=== PATIENT | female | born 1930 | race Caucasian/White ===

== ENCOUNTER 2016-10-31 09:20 | Inpatient (IN) | payer OTHER ==
[2016-10-31] MEDS ORDERED: ONDANSETRON 4 MG/2 ML VIAL IVP ONE (09:47)
[2016-10-31] MEDS ORDERED: NS 500 ML IV ONE ×2 (09:48→15:33)
--- NOTE | 2016-10-31 10:26 | UCPHY ---
H & P Time Seen by Provider: 10/31/16 09:37 Patient Type: Established HPI/ROS: CHIEF COMPLAINT:Cough, nausea HPI: The patient is an 86 year old female with a complicated past medical history significant for PE, chronic UTI and knee pain, among others. Her daughter brought her here today with chief complaint of cough and shortness of breath that has been worsening over the last week. No fever or hemoptysis. She states also that the patient was started recently on Macrobid for chronic UTI, but took 1 pill of it and reported feeling too sick to her stomach. She has been having difficulty eating and drinking secondary to severe nausea and vomiting. No recent fall. REVIEW OF SYSTEMS: Aside from elements discussed in the HPI, a comprehensive 10-point review of systems was reviewed and is negative. PMH: Includes PE, chronic UTI, hypo kalemia. SOCIAL HISTORY: Lives with daughter. Retired. Denies drug abuse. FAMILY HISTORY: Reviewed, noncontributory PHYSICAL EXAM: General:Patient is alert, in no acute distress. ENT:Eyes are normal to inspection. ENT inspection normal. Neck: Normal inspection. Full range of motion. Respiratory:No respiratory distress. Breath sounds normal bilaterally. Cardiovascular: Tachycardic. Strong peripheral pulses. Normal cap refill. Abdomen:The abdomen is nontender to palpation. There are no peritoneal signs. There are normal bowel sounds. Back: Normal to inspection. No tenderness to palpation. Skin: Normal color. No rash. Warm and dry. Extremities: 2+ edema bilateral lower extremities. Chronic arthritic changes noted of hands. Neuro: Oriented x3. Normal motor function. Normal sensory function. Smoking Status: Never smoked Constitutional: Initial Vital Signs Temperature (C) 36.7 C 10/31/16 09:30 Heart Rate 91 10/31/16 09:30 Respiratory Rate 20 10/31/16 09:30 Blood Pressure 114/86 H 10/31/16 09:30 O2 Sat (%) 92 10/31/16 09:30 O2 Delivery Mode Room Air O2 (L/minute) 2 Allergies/Adverse Reactions: Penicillins Allergy (Intermediate, Verified 10/31/16 09:42) Other-Enter Comments Sulfa (Sulfonamide Antibiotics) Allergy (Intermediate, Verified 10/31/16 09:42) Other-Enter Comments Home Medications: Medication Instructions Recorded Ranitidine HCl [Zantac] 150 mg PO DAILY PRN 07/07/16 Nitrofurantoin Monohyd/M-Cryst 100 mg PO BID 10/31/16 [Nitrofurantoin [place]-Macrocrystal] Potassium Chloride [K-Tab ER] 10 meq PO DAILY 10/31/16 Warfarin Sodium [Warfarin Sodium] 2 mg PO MOWEFRSA@1600 10/31/16 Warfarin Sodium [Warfarin Sodium] 4 mg PO SUTUTH@1600 10/31/16 MDM/Departure - MDM Diagnostics: Imaging Impressions Chest X-Ray 10/31/16 09:38 Impression: 1. Multifocal airspace consolidation in the left base and periphery of bilateral mid lungs. Query atelectasis versus evolving bronchopneumonia. 2. Cardiomegaly. Trace effusion. No ok failure. Medications Given: Discontinued Medications Sodium Chloride (Ns) 500 mls @ 0 mls/hr IV ONCE ONE PRN Reason: As Directed Stop: 10/31/16 09:49 Last Admin: 10/31/16 10:00 Dose: 500 mls Levofloxacin/Dextrose (Levaquin 750 Mg (Premix)) 150 mls @ 100 mls/hr IV EDNOW ONE PRN Reason: Protocol Stop: 10/31/16 12:44 Last Admin: 10/31/16 11:20 Dose: 150 mls Sodium Chloride (Ns) 1,000 mls @ 0 mls/hr IV ONCE ONE PRN Reason: Wide Open Stop: 10/31/16 12:12 Last Admin: 10/31/16 12:15 Dose: 1,000 mls Ondansetron HCl (Zofran) 4 mg IVP EDNOW ONE Stop: 10/31/16 09:48 Last Admin: 10/31/16 10:05 Dose: 4 mg ED Course/Re-evaluation: I spoke to Dr. Joe Danielle at 11:15 a.m. he accepts patient for admission and transfer. I have started Levaquin on this patient. At approximately noon, the patient was noted to have decreased BP, with a MAP of approximately 71. She continues to mentate well and is quite chatty. Based on this finding, we sent a lactate and started additional fluids. I called hospitalist service back to upgrade bed. At approximately 1pm, her lactate has returned and is normal. I have asked staff to discontinue her IV fluids secondary to CHF. Another daughter has arrived and patient is now agreeable to transport by ambulance, which is indicated secondary to hypoxia, tachycardia and low BP. - Depart Disposition: [facility] Inpatient Acute Clinical Impression: Pneumonia, Hypoxia, UTI (urinary tract infection), CHF (congestive heart failure), Elevated troponin Condition: Serious - PQRS PQRS Measurement: 134: Depression screening and followup, PRIME MD-PHQ2 (12 years and older) Over the last 2 weeks, how often have you been bothered by any of the following problems? 1. Feeling down, depressed, or hopeless? 2. Little interest or pleasure in doing things? Patient answered no to both 1 and 2 130: Documentation of medications. Reviewed all patient medications, doses, route and frequency. 226: Do you smoke? No. 51: 18 years old and older with diagnosis of COPD, spirometry performance. Spirometry not performed; equipment not available. Patient has no history of COPD 52: 18 years old and older with COPD and symptoms of COPD or FEV1<60% predicted prescribed a B Agonist. Spirometry not performed; equipment not available.
[2016-10-31 10:31] LABS: % IMMATURE GRANULYOCYTES 0.5 % (0.0-1.1); ABSOLUTE IMMATURE GRANULOCYTES 0.05 10^3/uL (0.00-0.10); ADD DIFF? NO; ADD MORPH? NO; ADD SCAN? NO; ATYPICAL LYMPHOCYTE FLAG 0 (0-99); FRAGMENT RBC FLAG 0 (0-99); HEMATOCRIT 45.8 % (38.0-47.0); HEMOGLOBIN 15.1 g/dL (12.6-16.3); LEFT SHIFT FLG 0 (0-99); LIPEMIA HEMOLYSIS FLAG 80 (0-99); MEAN CELL HEMOGLOBIN 29.7 pg (27.9-34.1); MEAN PLATELET VOLUME 9.6 fL (8.7-11.7); PLATELET CLUMPS FLAG 0 (0-99); PLATELET COUNT 261 10^3/uL (150-400); RED BLOOD CELL COUNT 5.09 10^6/uL (4.18-5.33); RED CELL DISTRIBUTION WIDTH 14.8 % (11.5-15.2)
--- NOTE | 2016-10-31 10:41 | CPEKG ---
Heart Rate: 107 RR Interval: 561 P-R Interval: 172 QRSD Interval: 90 QT Interval: 360 QTC Interval: 481 P [place]: -10 QRS [place]: 64 T Wave [place]: 147 EKG Severity - ABNORMAL ECG - EKG Impression: SINUS TACHYCARDIA EKG Impression: ABERRANT COMPLEX, POSSIBLY SUPRAVENTRICULAR EKG Impression: NON SPECIFIC ST/T WAVE CHANGES NOTED Electronically Signed By: Valeriy Bedolla 04-Nov-2016 09:04:47
[2016-10-31 10:43] LABS: ANION GAP 10 mEq/L (8-16); CALCIUM 8.5 mg/dL (8.5-10.4); CARBON DIOXIDE 27 mEq/l (22-31); CHLORIDE 96 mEq/L (97-110); CREATININE 0.4 mg/dL (0.6-1.0); GLOMERULAR FILTRATION RATE > 60; GLUCOSE 109 mg/dL (70-100); POTASSIUM 3.2 mEq/L (3.5-5.2); SODIUM 133 mEq/L (134-144)
[2016-10-31 11:04] LABS: INR 2.12 (0.83-1.16); PROTIME(PATIENT) 23.5 SEC (12.0-15.0)
[2016-10-31 11:05] LABS: APTT 35.7 SEC (23.0-38.0)
[2016-10-31 11:22] LABS: COLOR YELLOW; LEUKOCYTE ESTERASE,URINE NEGATIVE (NEGATIVE); NITRITE,URINE NEGATIVE (NEGATIVE); PH,URINE 6.5 (5.0-7.5)
[2016-10-31 11:36] LABS: AMORPHOUS TRACE /hpf (NONE-1+); BACTERIA TRACE /hpf (NONE SEEN); MUCUS 2+ /lpf (NONE-1+); RENAL EPITHELIAL CELLS OCCASIONAL /hpf (NONE SEEN); WBC,URINE 25-50 /hpf (0-3); YEAST OCCASIONAL /hpf (NONE SEEN)
[2016-10-31 11:58] LABS: TROPONIN I 0.073 ng/mL (0-0.034)
[2016-10-31] MEDS ORDERED: NS 1,000 ML IV ONE (12:11)
--- NOTE | 2016-10-31 15:26 | PDGENHP ---
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 Over the past few days she reports having a decreased appetite. She has had a sore throat. She was seen by her primary care provider few days ago thought she may have urinary tract infection and started her on Macrobid. She is taking the Macrobid for 1 day. She has been having some nausea as well as some chest tightness but denies any chest pain. Denies any fever or chills. She denies cough. Denies any swelling of her legs. History Information - Allergies/Home Medication List Allergies/Adverse Reactions: Penicillins Allergy (Intermediate, Verified 10/31/16 09:42) Other-Enter Comments Sulfa (Sulfonamide Antibiotics) Allergy (Intermediate, Verified 10/31/16 09:42) Other-Enter Comments Home Medications: Ranitidine HCl [Zantac] 150 mg PO DAILY PRN 07/07/16 [Last Taken Unknown] Nitrofurantoin Monohyd/M-Cryst [Nitrofurantoin [place]-Macrocrystal] 100 mg PO BID 10/31/16 [Last Taken Unknown] Potassium Chloride [K-Tab ER] 10 meq PO DAILY 10/31/16 [Last Taken Unknown] Warfarin Sodium [Warfarin Sodium] 2 mg PO MOWEFRSA@1600 10/31/16 [Last Taken Unknown] Warfarin Sodium [Warfarin Sodium] 4 mg PO SUTUTH@1600 10/31/16 [Last Taken Unknown] I have personally reviewed and updated: family history, medical history, social history, surgical history - Past Medical History Additional medical history: Hypertension. Acute PE with RV strain 09/2015. h/o duodenal ulcer. osteoporosis with compression fractures. dementia. incarcerated hernia - Surgical History Additional surgical history: umbilical hernia repair (09/2015). appendectomy. cholecystectomy - Family History Positive for: non-pertinent - Social History Smoking Status: Never smoked Alcohol Use: None Drug Use: None Additional social history: Pt lives with her daughter in [place]. Review of Systems ROS: 10pt was reviewed & negative except for what was stated in HPI & below Physical Exam Temp Pulse Resp BP Pulse Ox 36.7 C 92 14 93/68 L 91 L 10/31/16 14:10 10/31/16 14:43 10/31/16 14:43 10/31/16 14:43 10/31/16 14:43 O2 (L/minute) 2 Constitutional: no apparent distress, appears nourished, not in pain, obese Eyes: PERRL, anicteric sclera, EOMI Ears, Nose, Mouth, Throat: moist mucous membranes, hearing normal, ears appear normal, no oral mucosal ulcers Cardiovascular: regular rate and rhythym, no murmur, rub, or gallop, irregularly irregular, JVD, No edema Respiratory: no respiratory distress, no rales or rhonchi, clear to auscultation , reduced air movement, inspiratory crackles Gastrointestinal: normoactive bowel sounds, soft, non-tender abdomen, no palpable masses, No guarding, No rebound Genitourinary: no bladder fullness, no bladder tenderness Skin: warm, normal color, no rashes or abrasions, no fluctuance, no induration, No mottled Musculoskeletal: full muscle strength, no muscle tenderness, normal joint ROM, no joint effusions Neurologic: AAOx3, CN II-XII Intact, No facial droop Psychiatric: interacting appropriately, not anxious, not encephalopathic, thought process linear Lymph, Heme, Immunologic: no cervical LAD, no supraclavicular LAD Lab Data & Imaging Review 10/31/16 10:20 10/31/16 10:20 WBC 9.88 10^3/uL (3.80-9.50) H 10/31/16 10:20 RBC 5.09 10^6/uL (4.18-5.33) 10/31/16 10:20 Hgb 15.1 g/dL (12.6-16.3) 10/31/16 10:20 Hct 45.8 % (38.0-47.0) 10/31/16 10:20 MCV 90.0 fL (81.5-99.8) 10/31/16 10:20 MCH 29.7 pg (27.9-34.1) 10/31/16 10:20 MCHC 33.0 g/dL (32.4-36.7) 10/31/16 10:20 RDW 14.8 % (11.5-15.2) 10/31/16 10:20 Plt Count 261 10^3/uL (150-400) 10/31/16 10:20 MPV 9.6 fL (8.7-11.7) 10/31/16 10:20 Neut % (Auto) 82.0 % (39.3-74.2) H 10/31/16 10:20 Lymph % (Auto) 9.1 % (15.0-45.0) L 10/31/16 10:20 [place] % (Auto) 7.4 % (4.5-13.0) 10/31/16 10:20 Eos % (Auto) 0.1 % (0.6-7.6) L 10/31/16 10:20 Baso % (Auto) 0.9 % (0.3-1.7) 10/31/16 10:20 Nucleat RBC Rel Count 0.0 % (0.0-0.2) 10/31/16 10:20 Absolute Neuts (auto) 8.10 10^3/uL (1.70-6.50) H 10/31/16 10:20 Absolute Lymphs (auto) 0.90 10^3/uL (1.00-3.00) L 10/31/16 10:20 Absolute Monos (auto) 0.73 10^3/uL (0.30-0.80) 10/31/16 10:20 Absolute Eos (auto) 0.01 10^3/uL (0.03-0.40) L 10/31/16 10:20 Absolute Basos (auto) 0.09 10^3/uL (0.02-0.10) 10/31/16 10:20 Absolute Nucleated RBC 0.00 10^3/uL (0-0.01) 10/31/16 10:20 Immature Gran % 0.5 % (0.0-1.1) 10/31/16 10:20 Immature Gran # 0.05 10^3/uL (0.00-0.10) 10/31/16 10:20 PT 23.5 SEC (12.0-15.0) H 10/31/16 10:46 INR 2.12 (0.83-1.16) H 10/31/16 10:46 APTT 35.7 SEC (23.0-38.0) 10/31/16 10:46 VBG Lactic Acid 0.9 mmol/L (0.7-2.1) 10/31/16 12:20 Sodium 133 mEq/L (134-144) L 10/31/16 10:20 Potassium 3.2 mEq/L (3.5-5.2) L 10/31/16 10:20 Chloride 96 mEq/L (97-110) L 10/31/16 10:20 Carbon Dioxide 27 mEq/l (22-31) 10/31/16 10:20 Anion Gap 10 mEq/L (8-16) 10/31/16 10:20 BUN 8 mg/dL (7-23) 10/31/16 10:20 Creatinine 0.4 mg/dL (0.6-1.0) L 10/31/16 10:20 Estimated GFR > 60 10/31/16 10:20 Glucose 109 mg/dL (70-100) H 10/31/16 10:20 Calcium 8.5 mg/dL (8.5-10.4) 10/31/16 10:20 Troponin I 0.073 ng/mL (0-0.034) H 10/31/16 11:13 NT-Pro-B Natriuret Pep 94087 pg/mL (0-450) H 10/31/16 11:13 Urine Color YELLOW 10/31/16 11:19 Urine Appearance CLEAR 10/31/16 11:19 Urine pH 6.5 (5.0-7.5) 10/31/16 11:19 Ur Specific [place] 1.025 (1.002-1.030) 10/31/16 11:19 Urine Protein 2+ (NEGATIVE) H 10/31/16 11:19 Urine Ketones TRACE (NEGATIVE) H 10/31/16 11:19 Urine Blood 1+ (NEGATIVE) H 10/31/16 11:19 Urine Nitrate NEGATIVE (NEGATIVE) 10/31/16 11:19 Urine Bilirubin POSITIVE (NEGATIVE) H 10/31/16 11:19 Urine Urobilinogen 0.2 EU (0.2-1.0) 10/31/16 11:19 Ur Leukocyte Esterase NEGATIVE (NEGATIVE) 10/31/16 11:19 Urine RBC 5-10 /hpf (0-3) H 10/31/16 11:19 Urine WBC 25-50 /hpf (0-3) H 10/31/16 11:19 Ur Epithelial Cells TRACE /lpf (NONE-1+) 10/31/16 11:19 Ur Renal Epithelial Cell OCCASIONAL /hpf (NONE SEEN) H 10/31/16 11:19 Amorphous Sediment TRACE /hpf (NONE-1+) 10/31/16 11:19 Urine Bacteria TRACE /hpf (NONE SEEN) H 10/31/16 11:19 Hyaline Casts 1-3 /lpf (0-1) H 10/31/16 11:19 Urine Mucus 2+ /lpf (NONE-1+) H 10/31/16 11:19 Urine Yeast OCCASIONAL /hpf (NONE SEEN) H 10/31/16 11:19 Ur Culture Indicated? INDICATED (NI) H 10/31/16 11:19 Urine Glucose NEGATIVE (NEGATIVE) 10/31/16 11:19 Visualized and Interpreted Chest x-ray results: Yes Chest X-Ray results: other ( He has significant cardiomegaly there is fluid in the median fissure spelled left pleural effusion with some mid lung infiltrates) Visualized and Interpreted EKG results: Yes EKG Interpretation: Positive for: LVH. Negative for: ST elevation, ST depression Assessment & Plan Assessment: this 86-year-old female with history of pulmonary embolism in June of 2016 presenting with: # Acute respiratory failure most likely due to acute diastolic congestive heart failure versus less likely pneumonia or pulmonary embolism given therapeutic INR - currently the patient is hypotensive making diuretics contraindicated. I offered repeat CT imaging of the chest to evaluate for pulmonary embolism which the patient did not want to proceed with which I think is reasonable. She has been given levofloxacin in the emergency department but will defer further antibiotics since I think her symptoms are most likely due to acute congestive heart failure in the setting of an elevated BNP and cardiomegaly. - Echocardiogram - fluid bolus 500 cc of normal saline - monitor on telemetry and obtain EKG to evaluate for atrial fibrillation or other tachyarrhythmias which may be the cause of her heart failure # history of pulmonary embolism with therapeutic INR - continue warfarin and monitor INR daily # indeterminate troponin most likely due to myocardial strain due to above - cycle troponins and consult Cardiology as indicated # mild hypokalemia and hyponatremia - replace potassium per protocol and check magnesium # general malaise - send influenza test # history of recurrent urinary tract infections with UA negative for nitrates and leukocyte esterase - will monitor off of antibiotics patient be admitted hospital under inpatient status. Will continue warfarin for DVT prophylaxis patient requests to be full code status
[2016-10-31] MEDS ORDERED: PROTOCOL POTASSIUM 1 DOSE MISC PRN (15:34)
--- NOTE | 2016-10-31 15:42 | CPEKG ---
Heart Rate: 94 RR Interval: 638 P-R Interval: 176 QRSD Interval: 90 QT Interval: 384 QTC Interval: 481 P [place]: -10 QRS [place]: 80 T Wave [place]: 158 EKG Severity - ABNORMAL ECG - EKG Impression: SINUS TACHYCARDIA EKG Impression: ABNORMAL T, CONSIDER ISCHEMIA, ANT-LAT LEADS Electronically Signed By: Valeriy Bedolla 31-Oct-2016 16:16:46
[2016-10-31] MEDS: WARFARIN SODIUM 2 MG TAB PO SCH (16:30)
[2016-10-31 16:35] LABS: MAGNESIUM 1.4 mg/dL (1.6-2.3); POTASSIUM 3.2 mEq/L (3.5-5.2)
[2016-10-31 16:48] LABS: TROPONIN I 0.061 ng/mL (0-0.034)
[2016-10-31] MEDS ORDERED: POTASSIUM CL 10 MEQ TAB PO ONE (16:48)
[2016-10-31] MEDS ORDERED: PROTOCOL MAGNESIUM 1 DOSE IV PRN (16:51)
[2016-10-31] MEDS ORDERED: MAGNESIUM SULF 2 GM/WATER 50 ML IV ONE (16:54)
--- NOTE | 2016-10-31 17:13 | ECHO ---
[id number] + + [id number] : : [place] [address] : : [phone] + + Adult Echocardiographic Report + -----+ :Name: KING HART Date: 10/31/2016 03:18 PM BP: 133/69 mmHg : : Hospital Admission Number: [id number] Location : 245: :: 1930 Gender: Female Height: 62 in : :Age: 86 yrs Race: WH Weight: 125 lb : :Reason For Study: CHF : : BSA: 1.6 meters2 : :History: CHF : + -----+ MMode/2D Measurements \T\ Calculations IVSd: 1.5 cm RVDd: 3.2 cm EDV(Teich): 91.0 mlAo root diam: LVPWd: 1.1 cm LVIDd: 4.5 cm 3.4 cm LVOT diam: 2.1 cmLVLd ap4: 8.3 cm SV(MOD-sp4): LVOT area: EDV(MOD-sp4): 57.0 ml 3.3 cm2 136.0 ml LVLs ap4: 7.9 cm ESV(MOD-sp4): 79.0 ml EF(MOD-sp4): 41.9 % Normal Measurement Values: + + :LVIDd (3.5-5.7cm) IVSd (0.6-1.1cm) LVPWd (0.6-1.1cm) Aortic Root (2.0-3.7cm)Left Atrium (1.5-4.0cm): :LV Vol(d) (76-115ml) LV Vol(s) (29-48ml) Ejec Fraction (50-65%)PV Ramesh (0.6- 1.2m/s) TV Ramesh (0.4-1.0m/s) : :MV E Ramesh (0.8-1.0m/s)MV A Ramesh (0.3-1.0m/s)LVOT Ramesh (0.7-1.2m/s) Asc Ao Ramesh ( 0.9-1.8m/s) : + + Doppler Measurements \T\ Calculations MV E max ramesh: Ao V2 max: LV V1 max: PA V2 max: 104.2 cm/sec 155.3 cm/sec 75.1 cm/sec 68.3 cm/sec MV A max ramesh: Ao max P.7 mmHgLV V1 max PG: PA max P.4 cm/sec ARY(V,D): 1.6 cm2 2.3 mmHg 1.9 mmHg MV E/A: 0.84 MV dec time: 0.15 sec TR max ramesh: 293.2 cm/sec TR max P.4 mmHg RAP systole: 10.0 mmHg RVSP(TR): 44.4 mmHg Left Ventricle The left ventricle is normal in size. There is moderate concentric left ventricular hypertrophy. Left ventricular systolic function is moderately reduced. Ejection Fraction = 35%. There is Doppler evidence for diastolic dysfunction. Elevated LV filling pressures. There is moderate global hypokinesis of the left ventricle. Right Ventricle The right ventricle is normal in size and function. Atria The left atrial size is normal. Right atrial size is normal. A dilated inferior vena cava suggests increased right atrial pressure. Mitral Valve The mitral valve leaflets appear thickened, but open well. There is no mitral valve stenosis. There is mild mitral regurgitation. Tricuspid Valve The tricuspid valve is normal in structure and function. There is no tricuspid stenosis. There is mild tricuspid regurgitation. Right ventricular systolic pressure is 45mmHg. There is Doppler evidence for mild pulmonary hypertension. Aortic Valve The aortic valve is trileaflet. Mild Aortic Valve Calcification. There is no aortic stenosis. There is no aortic insufficiency. Pulmonic Valve The pulmonic valve is normal in structure and function. Mild pulmonic valvular regurgitation. Great Vessels The aortic root is normal size. Pericardium/Pleural Small to Moderate pericardial effusion. There are no echocardiographic indications of cardiac tamponade. There is a large pleural effusion. Conclusion A two-dimensional transthoracic echocardiogram with M-mode and Doppler was performed. Since previous echocardiogram 06/2016 the estimated left ventricular ejection fraction has decreased from 45-50% to 35%. The pericardial and pleural effusions are new. The patient is tachycardic There is moderate concentric left ventricular hypertrophy. Left ventricular systolic function is moderately reduced. Ejection Fraction = 35%. There is Doppler evidence for diastolic dysfunction. Elevated LV filling pressures There is moderate global hypokinesis of the left ventricle. There is mild mitral regurgitation. There is mild tricuspid regurgitation. A dilated inferior vena cava suggests increased right atrial pressure. Right ventricular systolic pressure is 45mmHg. There is Doppler evidence for mild pulmonary hypertension. Mild pulmonic valvular regurgitation. Small to Moderate pericardial effusion. There is a large pleural effusion. Final Reading Physician: Dr Joann Holden electronically signed on 10/31/2016 05:11 PM Ordering Physician: Joe Danielle Performed By: Emiliana Nix
[2016-11-01 04:28] LABS: % IMMATURE GRANULYOCYTES 0.4 % (0.0-1.1); ABSOLUTE IMMATURE GRANULOCYTES 0.03 10^3/uL (0.00-0.10); ADD DIFF? NO; ADD MORPH? NO; ADD SCAN? NO; ATYPICAL LYMPHOCYTE FLAG 10 (0-99); FRAGMENT RBC FLAG 0 (0-99); HEMATOCRIT 43.9 % (38.0-47.0); HEMOGLOBIN 13.8 g/dL (12.6-16.3); LEFT SHIFT FLG 0 (0-99); LIPEMIA HEMOLYSIS FLAG 80 (0-99); MEAN CELL HEMOGLOBIN 29.4 pg (27.9-34.1); MEAN CELL HEMOGLOBIN CONCENTR. 31.4 g/dL (32.4-36.7); MEAN CELL VOLUME 93.6 fL (81.5-99.8); MEAN PLATELET VOLUME 10.1 fL (8.7-11.7); PLATELET CLUMPS FLAG 0 (0-99); PLATELET COUNT 231 10^3/uL (150-400); RED BLOOD CELL COUNT 4.69 10^6/uL (4.18-5.33)
[2016-11-01 04:34] LABS: ANION GAP 7 mEq/L (8-16); CALCIUM 8.6 mg/dL (8.5-10.4); CARBON DIOXIDE 23 mEq/l (22-31); CHLORIDE 103 mEq/L (97-110); CREATININE 0.5 mg/dL (0.6-1.0); GLOMERULAR FILTRATION RATE > 60; GLUCOSE 82 mg/dL (70-100); POTASSIUM 4.2 mEq/L (3.5-5.2); SODIUM 133 mEq/L (134-144)
[2016-11-01 04:46] LABS: INR 2.32 (0.83-1.16); PROTIME(PATIENT) 25.7 SEC (12.0-15.0)
--- NOTE | 2016-11-01 10:03 | HOSPPROG ---
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% and pleural effusions -start lasix today now that she is no longer hypotensive -cardiology consult pending -cont to monitor for arrhythmias -consider thoracentesis if resp status is not improving with diuresis # history of pulmonary embolism with therapeutic INR - continue warfarin and monitor INR daily # indeterminate troponin most likely due to myocardial strain due to above ( decreasing) # mild hypokalemia and hypomagnesemia - replace per protocol # general malaise - influenza test negative # history of recurrent urinary tract infections with UA negative for nitrates and leukocyte esterase - will monitor off of antibiotics patient requests to be full code status I do not feel like she is stable for DC. The patient is fairly adamant about going home today. If she would like to leave she should sign AMA prior to DC. Subjective: uncooperative and combative today. denies sob. dry cough overnight. tolerating diet. didn't sleep through the night. refusing PT Objective: Vital Signs Temp Pulse Resp BP Pulse Ox 36.4 C 94 20 134/88 H 89 L 11/01/16 07:45 11/01/16 07:45 11/01/16 07:45 11/01/16 07:45 11/01/16 07:45 Laboratory Results 11/01/16 03:22 11/01/16 03:22 10/31/16 11/01/16 11/02/16 05:59 05:59 05:59 Intake Total 1850 Output Total 800 Balance 1050 PT 25.7 SEC (12.0-15.0) H 11/01/16 03:22 INR 2.32 (0.83-1.16) H 11/01/16 03:22 - Physical Exam Constitutional: obese Cardiovascular: no murmur, rub, or gallop, irregularly irregular, edema Respiratory: no respiratory distress, inspiratory crackles (middle and lowe lobes) Neurologic: AAOx3 ICD10 Worksheet Patient Problems: Problems Problem Status Onset Nausea & vomiting Acute Hyponatremia Acute Urinary tract infection Acute Near syncope Acute Tachycardia Acute Pneumonia Acute Hypoxia Acute UTI (urinary tract infection) Acute CHF (congestive heart failure) Acute Elevated troponin Acute
[2016-11-01] MEDS ORDERED: FUROSEMIDE 20 MG/2 ML VIAL IVP ONE ×2 (10:12→15:02)
[2016-11-01] MEDS: LISINOPRIL 5 MG TAB PO SCH (10:47)
--- NOTE | 2016-11-01 15:32 | GCON ---
[f rep st] CONSULTATION CARDIOLOGY CONSULTATION DATE OF CONSULTATION: 11/01/2016 CHIEF COMPLAINT: Heart failure. HISTORY OF PRESENT ILLNESS: We were asked by Dr. Danielle to visit with the patient. The patient is a n 86-year-old female with a history of recurrent pulmonary embolism, anticoagulated with warfarin. She has cardiomyopathy/heart failure, hypertension, dementia. She was admitted through Urgent Care on October 31 with shortness of breath, cough, lower extremity e radha. Her history is difficult due to her dementia. History is also provided by the daughters. Th ey report that she "just did not feel well." The patient herself denies chest pain. The patient wa nts to go home. REVIEW OF SYSTEMS: Unable due to the patient's dementia. ALLERGIES: Penicillin and sulfa. PAST MEDICAL HISTORY: 1. Pulmonary embolism with recurrence, currently anticoagulated with warfarin. 2. Possible paroxysmal atrial fibrillation. 3. Cardiomyopathy/systolic heart failure. 4. Hypertension. 5. Osteoarthritis. 6. Peptic ulcer disease. 7. Dementia. MEDICATIONS: Warfarin, nitrofurantoin, Zantac, and potassium chloride. SOCIAL HISTORY: The patient lives with one of her daughters. She does not smoke cigarettes or drin k alcohol. FAMILY HISTORY: Not applicable to the current case. PHYSICAL EXAM: VITAL SIGNS: Blood pressure 126/63, heart rate 94, oxygen saturation 95% on 6 L oriana al cannula, respiratory rate is 28. She is afebrile. GENERAL: This is an ill-appearing older fema le who is slightly agitated HEENT: Sclerae are clear and free of jaundice. Mucous members are mois t. CARDIOVASCULAR: JVP is approximately 12-14 cm of water. Regular tachycardic rhythm without mur mur, rub, or gallop. LUNGS: Bibasilar rales. No wheezes or rhonchi. ABDOMEN: Soft, nontender, n ondistended. No obvious masses. EXTREMITIES: Warm and well perfused with 1+ pitting edema to the mid shins bilaterally. LABORATORY DATA: White count 7.1, hematocrit 44, and platelets are 231. INR 2.3. Sodium 133, pota ssium 4.2, chloride 103, bicarb 23, BUN 10, creatinine 0.5. Troponin peak has been 0.73 and has rosalba nded down. Her BNP is 10,300; this is up from 796 in June. Urinalysis shows 25-50 white blood cells, 5-10 red blood cells, 1+ blood, negative nitrate, negative leukocyte esterase. Flu swab was negative. Blood cultures are pending. EKG reviewed by me and compared to an outpatient EKG from June shows sinus rhythm versus ectopic rhythm. Premature atrial contraction. Lateral ST-T wave abnormalities concerning for ischemia ian t are new compared with June 2016. Chest x-ray reviewed by me: Multifocal airspace consolidation. Cardiomegaly. Echocardiogram reviewed by me: Moderate concentric LVH. Ejection fraction is moderately reduced at 35%. Elevated LV filling pressures. Mild mitral regurgitation. Mild tricuspid regurgitation. Es timated pulmonary pressures of 45. Small to moderate pericardial effusion without tamponade. Large pleural effusion. Compared to June 2016, the ejection fraction has dropped from 45% to 50% to now 35%. The pericardial and pleural effusions are new. ASSESSMENT AND PLAN: An 86-year-old female admitted with acute systolic heart failure and a decreme nt in her ejection fraction. The etiology of this is not completely clear; although with her ischem ic-appearing EKG, I would be concerned about coronary disease. I had a long discussion with the jonathan real's daughters, and they agree that their mother would not want invasive measures such as coronary angiography. She is currently not having chest pain. Her troponins have been only minimally eleva chet and not up-trending. 1. Acute systolic heart failure: Agree with IV Lasix. She would likely require oral Lasix upon di scharge. Would also start spironolactone given her low ejection fraction. She has been started on lisinopril. If she tolerates this, initiate Coreg tomorrow. 2. Intermittent tachycardia: On telemetry, it appears that she may have intermittent paroxysmal at rial fibrillation. Start Coreg if she tolerates lisinopril. She is anticoagulated with warfarin. It is possible that she has had PAF which triggered heart failure as an outpatient. 3. History of hypertension: Lisinopril, consider Coreg. Spironolactone. Lasix. Thank you for allowing us to participate in this patient's care. We will follow with you. /[id number]/MODL
[2016-11-01] MEDS: SPIRONOLACTONE 25 MG TAB PO SCH (16:06)
[2016-11-01] MEDS: WARFARIN SODIUM 2 MG TAB PO SCH (16:06)
[2016-11-01 19:15] LABS: POTASSIUM 3.8 mEq/L (3.5-5.2)
[2016-11-02] MEDS ORDERED: POTASSIUM CL 10 MEQ TAB PO ONE ×2 (07:53→09:56)
[2016-11-02] MEDS ORDERED: FUROSEMIDE 20 MG/2 ML VIAL IVP SCH (09:00)
[2016-11-02 09:12] LABS: % IMMATURE GRANULYOCYTES 0.3 % (0.0-1.1); ABSOLUTE IMMATURE GRANULOCYTES 0.02 10^3/uL (0.00-0.10); ADD DIFF? NO; ADD MORPH? NO; ADD SCAN? NO; ATYPICAL LYMPHOCYTE FLAG 0 (0-99); FRAGMENT RBC FLAG 0 (0-99); HEMATOCRIT 42.2 % (38.0-47.0); HEMOGLOBIN 13.4 g/dL (12.6-16.3); LEFT SHIFT FLG 0 (0-99); LIPEMIA HEMOLYSIS FLAG 80 (0-99); MEAN CELL HEMOGLOBIN 29.8 pg (27.9-34.1); MEAN CELL HEMOGLOBIN CONCENTR. 31.8 g/dL (32.4-36.7); MEAN CELL VOLUME 93.8 fL (81.5-99.8); PLATELET CLUMPS FLAG 0 (0-99); PLATELET COUNT 206 10^3/uL (150-400); RED CELL DISTRIBUTION WIDTH 14.6 % (11.5-15.2)
[2016-11-02] MEDS: LISINOPRIL 5 MG TAB PO SCH (09:13)
[2016-11-02] MEDS: SPIRONOLACTONE 25 MG TAB PO SCH (09:14)
[2016-11-02 09:41] LABS: INR 2.37 (0.83-1.16); PROTIME(PATIENT) 26.1 SEC (12.0-15.0)
[2016-11-02 09:49] LABS: MAGNESIUM 1.7 mg/dL (1.6-2.3); POTASSIUM 3.4 mEq/L (3.5-5.2)
[2016-11-02] MEDS ORDERED: MAGNESIUM SULF 1 GM/DEXTROSE 100 ML IV ONE (09:57)
--- NOTE | 2016-11-02 10:27 | SOAPPROG ---
SOAP Progress Note Assessment/Plan: Assessment: 1. Acute hypoxic respiratory failure. This is likely on the basis of her body habitus as well as the recent development of cardiomyopathy and congestive heart failure. She appears to be oxygenating well on supplemental oxygen. There is no indication of an acute infectious process. She does have a history of previous PE although is therapeutically anticoagulated. 2. Newly diagnosed cardiomyopathy. She has global hypokinesis with an ejection fraction of about 30-35%. The exact etiology is not entirely clear. Ischemia has not been excluded. Her electrocardiogram demonstrates abnormalities (T- wave inversions) which could either be related to strain or possibly ischemia. Previous conversations with she and the family have indicated that she does not want any aggressive form of management. 3. Hypertension. 4. Probable paroxysmal atrial fibrillation. She has not had sustained episodes that we are aware of a rapid ventricular response. She is on systemic anticoagulation at the present time. Plan: 1. I will transition her to p.o. Lasix at a dose of 40 mg daily with supplemental potassium. 2. I would like to start Coreg 3.125 mg twice daily. 3. Her other medications including systemic anticoagulation will be continued. 4. I anticipate that she will likely go home today. There is consideration that she may start hospice care. 5. If needed she can follow up with me in clinic. 11/02/16 10:27 Subjective: The patient was seen and examined. Her chart was reviewed. She was seen in consultation yesterday by Dr. Joann Holden. Today, the patient states that she is comfortable. She does not have complaints of dyspnea or chest discomfort. She has remained hemodynamically stable. Apparently, she and her daughter have decided to leave the hospital, returned home and proceed with hospice care. Objective: Vital Signs Temp Pulse Resp BP Pulse Ox 36.8 C 97 20 131/73 H 93 11/02/16 04:00 11/02/16 04:00 11/02/16 04:00 11/02/16 09:13 11/02/16 04:00 Laboratory Results 11/02/16 09:00 11/02/16 09:00 11/01/16 11/02/16 11/03/16 05:59 05:59 05:59 Intake Total 1850 1280 Output Total 800 1750 Balance 1050 -470 PT 26.1 SEC (12.0-15.0) H 11/02/16 09:00 INR 2.37 (0.83-1.16) H 11/02/16 09:00 Laboratory Tests 10/31/16 10/31/16 11/01/16 11:13 16:16 03:22 INR Troponin I 0.073 H 0.061 H 0.050 H NT-Pro-B Natriuret Pep 29749 H 11/02/16 09:00 INR 2.37 H Troponin I NT-Pro-B Natriuret Pep Physical Exam - Physical Exam General Appearance: WD/WN, alert, other (Short stature), No no apparent distress Neck: non-tender Respiratory: decreased breath sounds (Right base), rales (At the base) Cardiac/Chest: regular rate, rhythm, edema (Trace), No gallop, No JVD, No diastolic murmur, No systolic murmur, No friction rub Peripheral Pulses: 2+: carotid (R), carotid (L) ICD10 Worksheet Patient Problems: Problems Problem Status Onset Nausea & vomiting Acute Hyponatremia Acute Urinary tract infection Acute Near syncope Acute Tachycardia Acute Pneumonia Acute Hypoxia Acute UTI (urinary tract infection) Acute CHF (congestive heart failure) Acute Elevated troponin Acute
[2016-11-02] MEDS ORDERED: FUROSEMIDE 40 MG TAB PO SCH (10:30)
--- NOTE | 2016-11-02 11:23 | GDS ---
[f rep st] DISCHARGE SUMMARY DISCHARGE DIAGNOSES: 1. Acute hypoxemic respiratory failure. 2. Wutvm-eq-goyrvpv combined congestive heart failure with worsening ejection fraction of 35%. 3. History of pulmonary embolism with a therapeutic INR. 4. Hypomagnesemia. 5. Hypokalemia. 6. History of recurring urinary tract infections. CONSULTANTS: Dr. Joann Holden, [facility]. HOSPITAL COURSE AND STAY BY PROBLEM: Acute hypoxemic respiratory failure most likely due to acute-o n-chronic combined heart failure: The patient was admitted to the hospital where initially she was hypotensive. She was given 2 L of fluid which improved her blood pressure. An echocardiogram done on admission revealed that her ejection fraction decreased to 35% from 45-50% from her last echo don e in June of 2016. The patient was noted to have pleural effusions. On hospital day #1, the patient was started on diuretics which seem to have improved her overall res piratory status. Initially, it was thought that she may have a component of pneumonia. However, th roughout her stay, she has been afebrile with a normal white count, and since has not received antib iotics since she was given a dose of levofloxacin on initial presentation. On day of discharge, the patient's family states that she seems to be doing better. I did recommend further hospital stay. However, the patient has been quite adamant about going home. The patient' s family would like to take her home and are planning to pursue hospice care and do not plan on purs uing with further hospitalizations in the future. DISCHARGE PHYSICAL EXAM: VITAL SIGNS: Blood pressure 131/73, pulse of 97, respiratory rate 20, O2 saturation 93% on 6 L, temperature afebrile. GENERAL: In no acute distress. HEART: S1, S2. LUNG S: Clear with improved rales. ABDOMEN: Soft. EXTREMITIES: Trace edema. LABORATORY DATA: Pertinent labs and studies done this hospital stay: Echocardiogram done 7. Refer to report. DISCHARGE MEDICATIONS: Please refer to discharge medication reconciliation in [facility] for details. Below is a preliminary list. New medications on hospital discharge: Lisinopril 5 mg daily, Coreg 3.125 mg b.i.d., Lasix 20 mg da henry. All other home medications were continued at her usual home dosages. DISCHARGE INSTRUCTIONS: 1. The patient will be discharged home where she plans to establish care with hospice. 2. She will be discharged with supplemental oxygen. 3. She should follow up with her primary care provider in the next week or so for routine hospital followup. 4. She should also follow up with Cardiology as directed. TIME SPENT: Greater than 30 minutes were spent on the discharge of this patient. /[id number]/MODL
[2016-11-02 11:38] VITALS: BP 126/57; PULSE 112; RESP 17; TEMP 97.7; O2SAT 92
--- NOTE | 2016-11-02 12:07 | PDIAF ---
- Diagnosis Diagnosis: Heart failure Code Status: Full Code - Medication Management Discharge Medications: Medications to Continue on Transfer Ranitidine HCl [Zantac] 150 mg PO DAILY PRN 07/07/16 [Last Taken Unknown] Warfarin Sodium 2 mg PO MOWEFRSA@1600 10/31/16 [Last Taken Unknown] Warfarin Sodium 4 mg PO SUTUTH@1600 10/31/16 [Last Taken Unknown] Lisinopril [Zestril 5 mg (*)] 5 mg PO DAILY #30 tab 11/01/16 [Last Taken Unknown ] Carvedilol [Coreg (*)] 3.125 mg PO BIDMEAL #60 tab 11/02/16 [Last Taken Unknown] Furosemide [Lasix 40 MG (*)] 40 mg PO DAILY #30 tab 11/02/16 [Last Taken Unknown ] Potassium Chloride 20 meq PO DAILY #30 tablet.er 11/02/16 [Last Taken Unknown] Discharge Medications: Refer to the Discharge Home Medication list for PRN reason. - Orders Services needed: Home Care, Registered Nurse, Physical Therapy Home Care Face to Face: I certify that this patient was under my care and that I had the required [id number] encounter meeting the encounter requirements on the discharge day. My findings support the fact that the patient is homebound as defined in CMS Chapter 7 Medicare Benefits Manual 30.1.1, The condition of the patient is such that there exists a normal inability to leave home and consequently, leaving home would require a considerable and taxing effort. Diet Recommendation: sodium restricted Diet Texture: Regular Texture Diet - Follow Up Care Current Providers and Referrals: Ayana Garrett MD [Primary Care Provider] - As per Instructions
[2016-11-02] MEDS ORDERED: WARFARIN SODIUM 2 MG TAB PO SCH (16:00)
[2016-11-02] MEDS ORDERED: CARVEDILOL 3.125 MG TAB PO SCH (18:00)
== END 2016-11-02 14:43 | disposition home health service (06) | DRG 291 ==
LOC: CED 09:20 → CEDHOLD 11:14 → F2N 14:01 → OBSVTOIN 14:48 → F2W 18:21
PROVIDERS: ADMIT Internal Medicine; ATTEND Family Medicine
DX: I11.0 Hypertensive heart disease with heart failure (principal); I50.43 Acute on chronic combined systolic (congestive) and diastolic (congestive) heart failure; J96.01 Acute respiratory failure with hypoxia; E83.42 Hypomagnesemia; E87.6 Hypokalemia; I48.0 Paroxysmal atrial fibrillation; I42.9 Cardiomyopathy, unspecified; Z86.711 Personal history of pulmonary embolism; Z87.440 Personal history of urinary (tract) infections; Z79.01 Long term (current) use of anticoagulants
CPT/HCPCS: 71020-PO; 80048-PO; 81003-PO; 81015-PO; 83605-PO; 83880-PO; 84484-PO; 85025-PO; 85610-PO; 85730-PO; 96361-PO; 96365-PO; 96375-PO; 97166-GO; 99215-PO; G0463-PO; G8987-GO-CL; G8988-GO-CJ; J1956; J2405; J3475

== ENCOUNTER 2017-05-11 15:25 | Inpatient (IN) | payer OTHER ==
[2017-05-11] MEDS ORDERED: NS 500 ML IV ONE (15:42)
[2017-05-11] MEDS ORDERED: HYDROmorphONE/DILAUDID 1 MG/ML INJ IVP ONE ×3 (15:42→17:12)
[2017-05-11] MEDS ORDERED: ONDANSETRON 4 MG/2 ML VIAL IVP ONE (15:42)
--- NOTE | 2017-05-11 15:52 | EDPHY ---
H & P Time Seen by Provider: 05/11/17 15:33 HPI/ROS: HPI Fatigue, feeling thirsty, loss of appetite, right hip pain. 86-year-old female by private vehicle with her daughter. This patient has had chronic right hip pain since a fall 2 years ago. It has been intermittent in nature. It has been worse over the last week. No history of acute fall or other traumatic injury to the right hip. She has been diagnosed with osteoarthritis in the right hip. She also complains of feeling fatigued, feeling thirsty and having a loss of appetite and feeling low on energy. She ambulates by [employer] surfing. ROS: Constitutional: No fever, no chills. As above. Eyes: No discharge. No changes in vision. ENT: No sore throat. No nasal congestion or rhinorrhea. Respiratory: No cough. No shortness of breath. Cardiac: No chest pain, no palpitations. Gastrointestinal: No abdominal pain, no vomiting, no diarrhea. As above. Genitourinary: No hematuria. No dysuria or increased frequency with urination. Musculoskeletal: No back pain. No neck pain. No myalgias or arthralgias. Skin: No rashes. Neurological: No headache. No focal weakness or altered sensation. Past medical history: History of pulmonary embolism. She is no longer on Coumadin. She is not currently on any anticoagulation. Congestive heart failure with ejection fraction of 35% in October of this year, hypokalemia, history of recurring urinary tract infections. Incarcerated hernia with corrective surgery, duodenal ulcer, dementia, osteoporosis. Social history: Nonsmoker. She lives with her daughter. Her daughter is present with her now. No alcohol. Physical Exam: General Appearance: Alert, she does not appear in distress. This patient is responding to questions appropriately and in full sentences. This patient appears generally well-hydrated and well-nourished. Eyes: Pupils equal and round no pallor or injection. No lid edema, erythema or injection. ENT, Mouth: Mucous membranes are moist. The pharyngeal tissues are unremarkable. No edema or swelling. No asymmetry suggestive of abscess. No erythema or exudates. Respiratory: There are no retractions, lungs are clear to auscultation with good air movement bilaterally. No tachypnea. Cardiovascular: Regular rate and rhythm. Tachycardia. No murmur appreciated. Gastrointestinal: Abdomen is soft and nontender, no masses, bowel sounds normal. No focal tenderness at McBurney's point. No Kendrick sign. Neurological: Motor sensory function is grossly intact. Cranial nerves are normal. Gait is normal. Skin: Warm and dry, no rashes. Musculoskeletal: Neck is supple and nontender. Extremities are symmetrical. 1 to 2+ pitting edema in the bilateral lower extremities which is symmetrical. No pain on axial compression of the right hip. She does have pain with passive and active flexion extension of the right hip. The right lower extremity is neurovascularly intact. Psychiatric: No agitation. No depression. Database: EKG: EKG time is 4:01 p.m.; EKG shows a narrow complex tachycardia with a ventricular rate of 114. PVCs noted. Probable left ventricular hypertrophy. The NE, QRS, QT intervals are within normal limits. There are no ST-T wave changes indicative of ischemic or injury pattern. No evidence of right heart strain. Interpreted by me. Imaging: Right hip x-ray series: Significant for severe degenerative osteoarthritis of both hips but greater on the right side. Interpreted by me. Please see radiologist's report for further details. CT angiogram of chest: Significant for multiple pulmonary emboli involving the right upper lobe, right lower lobe and the lingula. No evidence of infarction. Chronic disease noted. Results were discussed with staff radiologist Dr. Rodrigue Cordoba. Procedures: Emergency department course: IV placed. Vital signs reviewed. She is afebrile. Tachycardic. Hypertensive. Pulse oximetry is 92% on room air. IV placed. She was placed on a monitor. EKG performed and reviewed by myself. She was started on IV normal saline with 500 cc to be given over the next 1 hour. She was given 0.25 mg of IV hydromorphone initially for her right hip pain and 4 mg of IV Zofran. Appropriate blood work ordered. Urine will be obtained. 5:00 p.m., patient's D-dimer is elevated 1.63. She has a history of prior pulmonary embolism. She is no longer on anticoagulation. She consents for CT imaging to evaluate for pulmonary embolism. Height rate currently 110. She was given an additional 250 cc of IV normal saline. 5:30 p.m., patient providing a urine sample at this time. Results of blood work and CT angiogram of the chest discussed. Diagnosis of pulmonary emboli discussed with her and her daughter. 1 milligram/kilogram of Lovenox has been ordered. Plan for admission discussed. Patient and daughter endorse. 5:50 p.m., spoke with on-call hospitalist Dr. Jim. Case discussed in detail with him. He accepts this patient for admission. The patient's remaining emergency room course under my care has been uneventful. She was transferred and admitted to the hospitalist service in stable condition. Her tachycardia resolved to the 90s with IV fluids. Differential Diagnosis: The differential diagnosis on this patient includes but is not limited to acute on chronic right hip pain secondary to osteoarthritis, failure to thrive. This represents a partial list of diagnoses considered. These considerations are based on history, physical exam, past history, reassessment and diagnostic testing. Smoking Status: Never smoked Constitutional: Initial Vital Signs Temperature (C) 37.3 C 05/11/17 15:25 Heart Rate 120 H 05/11/17 15:25 Respiratory Rate 20 05/11/17 15:25 Blood Pressure 172/111 H 05/11/17 15:25 O2 Sat (%) 92 05/11/17 15:25 O2 Delivery Mode Room Air O2 (L/minute) 3 Allergies/Adverse Reactions: Penicillins Allergy (Intermediate, Verified 05/11/17 15:34) Other-Enter Comments Sulfa (Sulfonamide Antibiotics) Allergy (Intermediate, Verified 05/11/17 15:34) Other-Enter Comments Home Medications: Medication Instructions Recorded Ranitidine HCl [Zantac] 150 mg PO DAILY PRN 07/07/16 Warfarin Sodium 2 mg PO MOWEFRSA@1600 10/31/16 Warfarin Sodium 4 mg PO SUTUTH@1600 10/31/16 Lisinopril [Zestril 5 mg (*)] 5 mg PO DAILY #30 tab 11/01/16 Carvedilol [Coreg (*)] 3.125 mg PO BIDMEAL #60 tab 11/02/16 Furosemide [Lasix 40 MG (*)] 40 mg PO DAILY #30 tab 11/02/16 Potassium Chloride 20 meq PO DAILY #30 tablet.er 11/02/16 Medical Decision Making - Diagnostics Imaging Results: Imaging Impressions Hip X-Ray 05/11/17 15:43 Impression: 1. Severe bilateral degenerative osteoarthritic change of the hips, right greater than left, with some osseous remodeling of the right femoral head and some osteonecrosis, compared to the study from 2016. 2. Sequela of a prior remote right greater trochanteric fracture. There is no acute fracture observed. If there is further clinical concern regarding the patient's hip pain, CT imaging could be considered. Chest/Thorax CTA 05/11/17 16:37 Impression: 1. Multiple positive acute pulmonary thromboemboli right lower lobe, right upper lobe, and lingula. 2. Interstitial lung disease, without pulmonary infarcts or pleural effusion. 3. Coronary atherosclerosis, cardiomegaly, and atherosclerotic aorta, without aneurysm. 4. Mid and lower thoracic old compression fractures, with retropulsion of T12. Consider DEXA bone scan evaluation for osteoporosis. Findings and recommendations discussed with Emergency Department physician, Karen Cleveland M.D., at 1710 hours, on May 11, 2017. Final report concurs with initial preliminary interpretation. E:amm A test result has been communicated to a licensed care provider and documented in the [facility] Critical Result system on 05/11/2017 17:30, Message ID [id number]. - Data Points Laboratory Results: Laboratory Results 05/11/17 15:55 05/11/17 15:55 05/11/17 05/11/17 05/11/17 17:35 15:55 15:55 WBC RBC Hgb Hct MCV MCH MCHC RDW Plt Count MPV Neut % (Auto) Lymph % (Auto) [place] % (Auto) Eos % (Auto) Baso % (Auto) Nucleat RBC Rel Count Absolute Neuts (auto) Absolute Lymphs (auto) Absolute Monos (auto) Absolute Eos (auto) Absolute Basos (auto) Absolute Nucleated RBC Immature Gran % Immature Gran # PT 12.9 SEC SEC (12.0-15.0) INR 1.00 (0.83-1.16) APTT 27.6 SEC SEC (23.0-38.0) D-Dimer 1.63 ug/mLFEU H ug/mLFEU (0.00-0.50) Sodium Potassium Chloride Carbon Dioxide Anion Gap BUN Creatinine Estimated GFR Glucose Calcium Total Bilirubin Conjugated Bilirubin Unconjugated Bilirubin AST ALT Alkaline Phosphatase Troponin I Total Protein Albumin TSH 1.680 uIU/mL uIU/mL (0.465-4.680) Urine Color PALE YELLOW Urine Appearance CLEAR Urine pH 7.0 (5.0-7.5) Ur Specific Lincoln <= 1.005 (1.002-1.030) Urine Protein NEGATIVE (NEGATIVE) Urine Ketones NEGATIVE (NEGATIVE) Urine Blood TRACE H (NEGATIVE) Urine Nitrate NEGATIVE (NEGATIVE) Urine Bilirubin NEGATIVE (NEGATIVE) Urine Urobilinogen 0.2 EU EU (0.2-1.0) Ur Leukocyte Esterase NEGATIVE (NEGATIVE) Urine RBC OCCASIONAL /hpf /hpf (0-3) Urine WBC NONE SEEN /hpf /hpf (0-3) Ur Epithelial Cells TRACE /lpf /lpf (NONE-1+) Urine Bacteria TRACE /hpf H /hpf (NONE SEEN) Urine Mucus TRACE /lpf /lpf (NONE-1+) Urine Glucose NEGATIVE (NEGATIVE) 05/11/17 05/11/17 15:55 15:55 WBC 8.12 10^3/uL 10^3/uL (3.80-9.50) RBC 4.79 10^6/uL 10^6/uL (4.18-5.33) Hgb 14.6 g/dL g/dL (12.6-16.3) Hct 44.0 % % (38.0-47.0) MCV 91.9 fL fL (81.5-99.8) MCH 30.5 pg pg (27.9-34.1) MCHC 33.2 g/dL g/dL (32.4-36.7) RDW 13.1 % % (11.5-15.2) Plt Count 305 10^3/uL 10^3/uL (150-400) MPV 9.3 fL fL (8.7-11.7) Neut % (Auto) 69.8 % % (39.3-74.2) Lymph % (Auto) 19.0 % % (15.0-45.0) [place] % (Auto) 9.6 % % (4.5-13.0) Eos % (Auto) 0.5 % L % (0.6-7.6) Baso % (Auto) 0.9 % % (0.3-1.7) Nucleat RBC Rel Count 0.0 % % (0.0-0.2) Absolute Neuts (auto) 5.67 10^3/uL 10^3/uL (1.70-6.50) Absolute Lymphs (auto) 1.54 10^3/uL 10^3/uL (1.00-3.00) Absolute Monos (auto) 0.78 10^3/uL 10^3/uL (0.30-0.80) Absolute Eos (auto) 0.04 10^3/uL 10^3/uL (0.03-0.40) Absolute Basos (auto) 0.07 10^3/uL 10^3/uL (0.02-0.10) Absolute Nucleated RBC 0.00 10^3/uL 10^3/uL (0-0.01) Immature Gran % 0.2 % % (0.0-1.1) Immature Gran # 0.02 10^3/uL 10^3/uL (0.00-0.10) PT INR APTT D-Dimer Sodium 135 mEq/L mEq/L (134-144) Potassium 4.1 mEq/L mEq/L (3.5-5.2) Chloride 100 mEq/L mEq/L (97-110) Carbon Dioxide 22 mEq/l mEq/l (22-31) Anion Gap 13 mEq/L mEq/L (8-16) BUN 6 mg/dL L mg/dL (7-23) Creatinine 0.4 mg/dL L mg/dL (0.6-1.0) Estimated GFR > 60 Glucose 123 mg/dL H mg/dL (70-100) Calcium 9.0 mg/dL mg/dL (8.5-10.4) Total Bilirubin 0.9 mg/dL mg/dL (0.1-1.4) Conjugated Bilirubin 0.5 mg/dL mg/dL (0.0-0.5) Unconjugated Bilirubin 0.4 mg/dL mg/dL (0.0-1.1) AST 21 IU/L IU/L (14-46) ALT 25 IU/L IU/L (9-52) Alkaline Phosphatase 95 IU/L IU/L (38-126) Troponin I 0.015 ng/mL ng/mL (0.000-0.034) Total Protein 6.3 g/dL g/dL (6.3-8.2) Albumin 3.5 g/dL g/dL (3.5-5.0) TSH Urine Color Urine Appearance Urine pH Ur Specific Lincoln Urine Protein Urine Ketones Urine Blood Urine Nitrate Urine Bilirubin Urine Urobilinogen Ur Leukocyte Esterase Urine RBC Urine WBC Ur Epithelial Cells Urine Bacteria Urine Mucus Urine Glucose Medications Given: Discontinued Medications Enoxaparin Sodium (Lovenox) 60 mg SC EDNOW ONE Stop: 05/11/17 17:32 Last Admin: 05/11/17 17:54 Dose: 60 mg Hydromorphone HCl (Dilaudid) 0.25 mg IVP EDNOW ONE Stop: 05/11/17 15:43 Last Admin: 05/11/17 16:06 Dose: 0.25 mg Hydromorphone HCl (Dilaudid) 0.25 mg IVP EDNOW ONE Stop: 05/11/17 16:36 Last Admin: 05/11/17 16:38 Dose: 0.25 mg Hydromorphone HCl (Dilaudid) 0.25 mg IVP EDNOW ONE Stop: 05/11/17 17:13 Last Admin: 05/11/17 17:13 Dose: 0.25 mg Sodium Chloride (Ns) 500 mls @ 0 mls/hr IV EDNOW ONE; Wide Open PRN Reason: Protocol Stop: 05/11/17 15:43 Last Admin: 05/11/17 16:28 Dose: 500 mls Sodium Chloride (Ns) 250 mls @ 1,500 mls/hr IV ONCE ONE Stop: 05/11/17 17:56 Last Admin: 05/11/17 17:53 Dose: 250 mls Ondansetron HCl (Zofran) 4 mg IVP EDNOW ONE Stop: 05/11/17 15:43 Last Admin: 05/11/17 16:06 Dose: 4 mg Departure - Departure Disposition: [facility] Inpatient Acute Clinical Impression: Fatigue, Right hip pain, Pulmonary embolism
[2017-05-11 16:00] LABS: % IMMATURE GRANULYOCYTES 0.2 % (0.0-1.1); ABSOLUTE IMMATURE GRANULOCYTES 0.02 10^3/uL (0.00-0.10); ADD DIFF? NO; ADD MORPH? NO; ADD SCAN? NO; ATYPICAL LYMPHOCYTE FLAG 0 (0-99); FRAGMENT RBC FLAG 0 (0-99); HEMOGLOBIN 14.6 g/dL (12.6-16.3); LEFT SHIFT FLG 0 (0-99); LIPEMIA HEMOLYSIS FLAG 80 (0-99); MEAN CELL HEMOGLOBIN 30.5 pg (27.9-34.1); MEAN CELL HEMOGLOBIN CONCENTR. 33.2 g/dL (32.4-36.7); MEAN CELL VOLUME 91.9 fL (81.5-99.8); MEAN PLATELET VOLUME 9.3 fL (8.7-11.7); PLATELET CLUMPS FLAG 0 (0-99); PLATELET COUNT 305 10^3/uL (150-400); RED BLOOD CELL COUNT 4.79 10^6/uL (4.18-5.33); RED CELL DISTRIBUTION WIDTH 13.1 % (11.5-15.2)
--- NOTE | 2017-05-11 16:05 | CPEKG ---
Heart Rate: 114 RR Interval: 526 P-R Interval: 168 QRSD Interval: 86 QT Interval: 328 QTC Interval: 452 P [place]: -42 QRS [place]: 20 T Wave [place]: 71 EKG Severity - ABNORMAL ECG - EKG Impression: SINUS TACHYCARDIA EKG Impression: VENTRICULAR PREMATURE COMPLEX EKG Impression: CONSIDER LEFT VENTRICULAR HYPERTROPHY Electronically Signed By: Karen Cleveland 11-May-2017 19:38:04
[2017-05-11 16:11] LABS: APTT 27.6 SEC (23.0-38.0); PROTIME(PATIENT) 12.9 SEC (12.0-15.0)
[2017-05-11 16:21] LABS: ALANINE AMINOTRANSFERASE 25 IU/L (9-52); ALBUMIN 3.5 g/dL (3.5-5.0); ALKALINE PHOSPHATASE 95 IU/L (38-126); ANION GAP 13 mEq/L (8-16); ASPARTATE AMINOTRANSFERASE 21 IU/L (14-46); BILIRUBIN,TOTAL 0.9 mg/dL (0.1-1.4); BILIRUBIN-CONJUGATED 0.5 mg/dL (0.0-0.5); BILIRUBIN-UNCONJUGATED 0.4 mg/dL (0.0-1.1); CARBON DIOXIDE 22 mEq/l (22-31); CHLORIDE 100 mEq/L (97-110); CREATININE 0.4 mg/dL (0.6-1.0); GLOMERULAR FILTRATION RATE > 60; GLUCOSE 123 mg/dL (70-100); POTASSIUM 4.1 mEq/L (3.5-5.2); SODIUM 135 mEq/L (134-144); TOTAL PROTEIN 6.3 g/dL (6.3-8.2)
[2017-05-11 16:25] LABS: TROPONIN I 0.015 ng/mL (0.000-0.034)
[2017-05-11] MEDS ORDERED: IOPAMIDOL (ISOVUE 370) 100 ML BTL IV ONE (16:46)
[2017-05-11] MEDS ORDERED: ENOXAPARIN 60 MG/0.6 ML SYR SC ONE (17:31)
[2017-05-11 17:40] LABS: COLOR PALE YELLOW; LEUKOCYTE ESTERASE,URINE NEGATIVE (NEGATIVE); NITRITE,URINE NEGATIVE (NEGATIVE)
[2017-05-11 17:46] LABS: WBC,URINE NONE SEEN /hpf (0-3)
[2017-05-11 17:47] LABS: BACTERIA TRACE /hpf (NONE SEEN); MUCUS TRACE /lpf (NONE-1+); RBC,URINE OCCASIONAL /hpf (0-3)
[2017-05-11] MEDS ORDERED: NS 250 ML IV ONE (17:47)
[2017-05-11] MEDS ORDERED: ACETAMINOPHEN 325 MG TAB PO PRN (19:29)
[2017-05-11] MEDS ORDERED: ONDANSETRON DISINTEGRATING 4 MG TAB PO PRN (19:29)
[2017-05-11] MEDS ORDERED: ONDANSETRON 4 MG/2 ML VIAL IVP PRN (19:29)
[2017-05-11] MEDS ORDERED: oxyCODONE IR 5 MG TAB PO PRN (19:29)
--- NOTE | 2017-05-11 19:29 | PDGENHP ---
History and Physical - Chief Complaint Acute fatigue - History of Present Illness 86-year-old female presenting with acute fatigue characterized as low energy with associated shortness of breath, anorexia, pain located in her right hip. Patient reports that the onset of the hip pain was approximately 2 years ago after sustaining an injury, and has been intermittent thereafter. It has become acutely worse over the past week and is exacerbated by ambulation, alleviated with rest. She is able to get around her home by holding onto furniture. Over the past week she has also noticed increased fatigue, low energy, poor appetite. History Information - Allergies/Home Medication List Allergies/Adverse Reactions: Penicillins Allergy (Intermediate, Verified 05/11/17 15:34) Other-Enter Comments Sulfa (Sulfonamide Antibiotics) Allergy (Intermediate, Verified 05/11/17 15:34) Other-Enter Comments Home Medications: Ranitidine HCl [Zantac] 150 mg PO DAILY PRN 07/07/16 [Last Taken Unknown] Warfarin Sodium 2 mg PO MOWEFRSA@1600 10/31/16 [Last Taken Unknown] Warfarin Sodium 4 mg PO SUTUTH@1600 10/31/16 [Last Taken Unknown] I have personally reviewed and updated: family history, medical history, social history, surgical history - Past Medical History Additional medical history: Hypertension. Acute PE with RV strain 09/2015. h/o duodenal ulcer. osteoporosis with compression fractures. dementia. incarcerated hernia - Surgical History Additional surgical history: umbilical hernia repair (09/2015). appendectomy. cholecystectomy - Family History Additional family history: No recent sick family contacts, no family history of venous thromboembolism - Social History Smoking Status: Never smoked Alcohol Use: None Drug Use: None Additional social history: Pt lives with her daughter in [place]. Review of Systems Review of Systems: ROS: 10pt was reviewed & negative except for what was stated in HPI & below Constitutional: Reports: weakness, other (Anorexia) Respiratory: Reports: shortness of breath Muscolosketal: Reports: joint pain (Right hip) Physical Exam Physical Exam: Temp Pulse Resp BP Pulse Ox 37.2 C 98 20 112/68 92 05/11/17 16:00 05/11/17 18:00 05/11/17 18:00 05/11/17 18:00 05/11/17 18:00 O2 (L/minute) 3 Constitutional: no apparent distress, appears nourished, chronically ill appearing, uncomfortable Eyes: PERRL, anicteric sclera, EOMI Ears, Nose, Mouth, Throat: other (tacky mucous membranes) Cardiovascular: regular rate and rhythym, no murmur, rub, or gallop, edema ( trace bilat LE), No irregularly irregular Respiratory: inspiratory crackles (bilat), No reduced air movement, No expiratory wheeze, No bronchial breath sounds, No respiratory distress Gastrointestinal: normoactive bowel sounds, soft, non-tender abdomen, no palpable masses, other (R abd hernia, reducible), No distension Genitourinary: no bladder fullness, no bladder tenderness Skin: warm, normal color, no rashes or abrasions, no fluctuance, no induration, No mottled Musculoskeletal: other (tenderness R lateral hip, pain w/ active and passive flexion R hip, pain at 30 deg passive ROM L hip, pain in L knee w/o effusion) Neurologic: AAOx3, sensation intact bilaterally, other (motor inhibited 2/2 pain in LE) Psychiatric: interacting appropriately, not anxious, not encephalopathic, thought process linear, other (concentration 7/7) Lab Data & Imaging Review 05/11/17 15:55 05/11/17 15:55 WBC 8.12 10^3/uL (3.80-9.50) 05/11/17 15:55 RBC 4.79 10^6/uL (4.18-5.33) 05/11/17 15:55 Hgb 14.6 g/dL (12.6-16.3) 05/11/17 15:55 Hct 44.0 % (38.0-47.0) 05/11/17 15:55 MCV 91.9 fL (81.5-99.8) 05/11/17 15:55 MCH 30.5 pg (27.9-34.1) 05/11/17 15:55 MCHC 33.2 g/dL (32.4-36.7) 05/11/17 15:55 RDW 13.1 % (11.5-15.2) 05/11/17 15:55 Plt Count 305 10^3/uL (150-400) 05/11/17 15:55 MPV 9.3 fL (8.7-11.7) 05/11/17 15:55 Neut % (Auto) 69.8 % (39.3-74.2) 05/11/17 15:55 Lymph % (Auto) 19.0 % (15.0-45.0) 05/11/17 15:55 [place] % (Auto) 9.6 % (4.5-13.0) 05/11/17 15:55 Eos % (Auto) 0.5 % (0.6-7.6) L 05/11/17 15:55 Baso % (Auto) 0.9 % (0.3-1.7) 05/11/17 15:55 Nucleat RBC Rel Count 0.0 % (0.0-0.2) 05/11/17 15:55 Absolute Neuts (auto) 5.67 10^3/uL (1.70-6.50) 05/11/17 15:55 Absolute Lymphs (auto) 1.54 10^3/uL (1.00-3.00) 05/11/17 15:55 Absolute Monos (auto) 0.78 10^3/uL (0.30-0.80) 05/11/17 15:55 Absolute Eos (auto) 0.04 10^3/uL (0.03-0.40) 05/11/17 15:55 Absolute Basos (auto) 0.07 10^3/uL (0.02-0.10) 05/11/17 15:55 Absolute Nucleated RBC 0.00 10^3/uL (0-0.01) 05/11/17 15:55 Immature Gran % 0.2 % (0.0-1.1) 05/11/17 15:55 Immature Gran # 0.02 10^3/uL (0.00-0.10) 05/11/17 15:55 PT 12.9 SEC (12.0-15.0) 05/11/17 15:55 INR 1.00 (0.83-1.16) 05/11/17 15:55 APTT 27.6 SEC (23.0-38.0) 05/11/17 15:55 D-Dimer 1.63 ug/mLFEU (0.00-0.50) H 05/11/17 15:55 Sodium 135 mEq/L (134-144) 05/11/17 15:55 Potassium 4.1 mEq/L (3.5-5.2) 05/11/17 15:55 Chloride 100 mEq/L (97-110) 05/11/17 15:55 Carbon Dioxide 22 mEq/l (22-31) 05/11/17 15:55 Anion Gap 13 mEq/L (8-16) 05/11/17 15:55 BUN 6 mg/dL (7-23) L 05/11/17 15:55 Creatinine 0.4 mg/dL (0.6-1.0) L 05/11/17 15:55 Estimated GFR > 60 05/11/17 15:55 Glucose 123 mg/dL (70-100) H 05/11/17 15:55 Calcium 9.0 mg/dL (8.5-10.4) 05/11/17 15:55 Total Bilirubin 0.9 mg/dL (0.1-1.4) 05/11/17 15:55 Conjugated Bilirubin 0.5 mg/dL (0.0-0.5) 05/11/17 15:55 Unconjugated Bilirubin 0.4 mg/dL (0.0-1.1) 05/11/17 15:55 AST 21 IU/L (14-46) 05/11/17 15:55 ALT 25 IU/L (9-52) 05/11/17 15:55 Alkaline Phosphatase 95 IU/L (38-126) 05/11/17 15:55 Troponin I 0.015 ng/mL (0.000-0.034) 05/11/17 15:55 Total Protein 6.3 g/dL (6.3-8.2) 05/11/17 15:55 Albumin 3.5 g/dL (3.5-5.0) 05/11/17 15:55 TSH 1.680 uIU/mL (0.465-4.680) 05/11/17 15:55 Urine Color PALE YELLOW 05/11/17 17:35 Urine Appearance CLEAR 05/11/17 17:35 Urine pH 7.0 (5.0-7.5) 05/11/17 17:35 Ur Specific [place] <= 1.005 (1.002-1.030) 05/11/17 17:35 Urine Protein NEGATIVE (NEGATIVE) 05/11/17 17:35 Urine Ketones NEGATIVE (NEGATIVE) 05/11/17 17:35 Urine Blood TRACE (NEGATIVE) H 05/11/17 17:35 Urine Nitrate NEGATIVE (NEGATIVE) 05/11/17 17:35 Urine Bilirubin NEGATIVE (NEGATIVE) 05/11/17 17:35 Urine Urobilinogen 0.2 EU (0.2-1.0) 05/11/17 17:35 Ur Leukocyte Esterase NEGATIVE (NEGATIVE) 05/11/17 17:35 Urine RBC OCCASIONAL /hpf (0-3) 05/11/17 17:35 Urine WBC NONE SEEN /hpf (0-3) 05/11/17 17:35 Ur Epithelial Cells TRACE /lpf (NONE-1+) 05/11/17 17:35 Urine Bacteria TRACE /hpf (NONE SEEN) H 05/11/17 17:35 Urine Mucus TRACE /lpf (NONE-1+) 05/11/17 17:35 Urine Glucose NEGATIVE (NEGATIVE) 05/11/17 17:35 Visualized and Interpreted EKG results: Yes EKG Interpretation: Positive for: other (Sinus tachycardia with Q-wave in lead 3 , isolated ST depression in lead V6) Assessment & Plan Assessment: 86-year-old female presents with acute, recurrent pulmonary embolism Plan: 1. Pulmonary embolism. Acute, recurrent, occurring approximately 6 months after discontinuation of systemic anticoagulation -most recent pulmonary embolism occurred in September of 2015, and seemed to be provoked that time from a hospitalization, this 1 does not appear to be provoked the patient will most likely require lifelong systemic anticoagulation. -discussed with Dr. Karen Cleveland, he reports to me that the patient has been ordered for therapeutic dosing of Lovenox -will continue Lovenox night, address DOAC therapy with the patient in a.m., verses Coumadin with Lovenox bridge -get INR level 2. Chronic systolic and diastolic congestive heart failure. No evidence of acute exacerbation, reviewed outside records including 11/02/[address] Joe Danielle, characterizing patient's most recent hospitalization for CHF exacerbation and recently declined ejection fraction of 35%, initiated on MECHE inhibitor, beta-meryl, Lasix at that time -will continue these medications and monitor for any evidence of hypovolemia or hypotension 3. Mild dementia. Chronic, continue to monitor patient, at risk for sundowning and acute encephalopathy, placed on melatonin at bedtime 4. History of duodenal ulcer. Patient does have a history of upper GI bleed while on systemic anticoagulation, risks and benefits of systemic anticoagulation were fully discussed with the patient, recommend revisiting this topic with patient's family when present 5. Suspected interstitial lung disease. Present on chest CT, may be contributing to degree of patient's fatigue, she may require supplemental oxygen at time of discharge 6. Hip pain. Acute on chronic, secondary to osteoarthritis evident on x-ray, right greater than left, pain management to be addressed with patient -heat pad, ice, lidoderm, oxy IR PRN Diet. Regular Prophylaxis. High risk patient, systemic anticoagulation Code. Full Disposition. Anticipated discharge uncertain this time, anticipated length stay is greater than 48 hours warranting inpatient admission status for acute recurrent pulmonary embolism in the setting of high risk comorbid chronic CHF, dementia, acute worsening osteoarthritic hip pain making ambulation very difficult for the patient. This is a high medical complexity patient, with high risk of worsening morbidity and/or mortality secondary to the conditions as outlined above.
[2017-05-11] MEDS ORDERED: MAGNESIUM HYDROXIDE 30 ML UDCUP PO PRN (20:25)
[2017-05-11] MEDS ORDERED: BISACODYL 10 MG SUPP PR PRN (20:25)
[2017-05-11] MEDS ORDERED: LACTULOSE 20 GM/30 ML UDCUP PO PRN (20:25)
[2017-05-11] MEDS ORDERED: POLYETHYLENE GLYCOL 3350 17 GM PKT PO PRN (20:25)
[2017-05-11] MEDS ORDERED: WARFARIN SODIUM 4 MG TAB PO SCH (20:30)
[2017-05-11] MEDS ORDERED: MELATONIN 3 MG TAB PO SCH (21:00)
[2017-05-11] MEDS ORDERED: LIDOCAINE 5% 1 EA PATCH TD SCH (21:00)
[2017-05-11] MEDS ORDERED: OLANZapine DISINTEGR 5 MG TAB PO PRN (21:13)
[2017-05-11] MEDS: SENNOSIDES/DOCUSATE SODIUM TAB PO SCH (21:23)
[2017-05-11] MEDS ORDERED: HALOPERIDOL LACT 5 MG/ML INJ IVP PRN (21:52)
[2017-05-11] MEDS ORDERED: NON-FORMULARY NEW DRUG (Ranitidine Hcl [Zantac] 150 MG) PO PRN (21:52)
[2017-05-11] MEDS ORDERED: FAMOTIDINE 20 MG TAB PO PRN (22:00)
[2017-05-12] MEDS: ENOXAPARIN 60 MG/0.6 ML SYR SC SCH ×2 (05:04→08:51)
[2017-05-12 05:48] VITALS: RESP 24
[2017-05-12 06:23] LABS: % IMMATURE GRANULYOCYTES 0.3 % (0.0-1.1); ABSOLUTE IMMATURE GRANULOCYTES 0.02 10^3/uL (0.00-0.10); ADD DIFF? NO; ADD MORPH? NO; ADD SCAN? NO; ATYPICAL LYMPHOCYTE FLAG 0 (0-99); FRAGMENT RBC FLAG 0 (0-99); HEMATOCRIT 39.5 % (38.0-47.0); HEMOGLOBIN 13.1 g/dL (12.6-16.3); LEFT SHIFT FLG 0 (0-99); LIPEMIA HEMOLYSIS FLAG 80 (0-99); MEAN CELL HEMOGLOBIN 31.5 pg (27.9-34.1); MEAN CELL HEMOGLOBIN CONCENTR. 33.2 g/dL (32.4-36.7); MEAN PLATELET VOLUME 9.5 fL (8.7-11.7); PLATELET CLUMPS FLAG 10 (0-99); PLATELET COUNT 242 10^3/uL (150-400); RED BLOOD CELL COUNT 4.16 10^6/uL (4.18-5.33); RED CELL DISTRIBUTION WIDTH 13.3 % (11.5-15.2)
[2017-05-12 06:41] LABS: ANION GAP 8 mEq/L (8-16); CALCIUM 8.6 mg/dL (8.5-10.4); CARBON DIOXIDE 25 mEq/l (22-31); CHLORIDE 105 mEq/L (97-110); CREATININE 0.4 mg/dL (0.6-1.0); GLOMERULAR FILTRATION RATE > 60; GLUCOSE 82 mg/dL (70-100); MAGNESIUM 1.7 mg/dL (1.6-2.3); POTASSIUM 4.1 mEq/L (3.5-5.2); SODIUM 138 mEq/L (134-144)
[2017-05-12 07:04] LABS: INR 1.13 (0.83-1.16); PROTIME(PATIENT) 14.4 SEC (12.0-15.0)
[2017-05-12] MEDS: SENNOSIDES/DOCUSATE SODIUM TAB PO SCH (08:52)
[2017-05-12] MEDS ORDERED: FUROSEMIDE 40 MG TAB PO SCH (09:00)
[2017-05-12] MEDS ORDERED: METHYLDOPA 250 MG TAB PO SCH (09:00)
[2017-05-12] MEDS ORDERED: PATCH REMOVAL 1 EA PATCH TD SCH (09:00)
--- NOTE | 2017-05-12 10:02 | PDMN ---
Medical Necessity Medical necessity: est los >2 mn for acute recurrent PE after dc of systemic AC & acute encephalopathy; comorbid CHF, dementia, acute worsening osteoarthritic hip pain w/difficulty ambulating, hx DU, ? ILD; per H&P & order 05/11/17
--- NOTE | 2017-05-12 11:51 | PDIAF ---
- Diagnosis Code Status: Full Code - Medication Management Discharge Medications: Medications to Continue on Transfer Ranitidine HCl [Zantac] 150 mg PO DAILY PRN 07/07/16 [Last Taken 05/10/17] Furosemide [Lasix 40 MG (*)] 40 mg PO DAILY #30 tab 11/02/16 [Last Taken ] Methyldopa [Methyldopa 250 mg (*)] 250 mg PO BID 05/11/17 [Last Taken 05/10/17] Enoxaparin [Lovenox 60 MG (*)] 60 mg SC BID #20 syr 05/12/17 [Last Taken Unknown ] Lidocaine 5% [Lidoderm 5% Patch (*)] 1 ea TD DAILY21 #1 box 05/12/17 [Last Taken Unknown] Discharge Medications: Refer to the Discharge Home Medication list for PRN reason. PICC Care - Routine: N/A - Orders Services needed: Home Care, Registered Nurse, Physical Therapy, Occupational Therapy Home Care Face to Face: I certify that this patient was under my care and that I had the required [id number] encounter meeting the encounter requirements on the discharge day. My findings support the fact that the patient is homebound as defined in Home Care Face to Face Continued: CMS Chapter 7 Medicare Benefits Manual 30.1.1 , The condition of the patient is such that there exists a normal inability to leave home and consequently, leaving home would require a considerable and taxing effort. Isolation Type: n/a Oxygen: 3L / by [place] Diet Recommendation: no restrictions on diet Diet Texture: Regular Texture Diet Tube feeding: n/a Activity/Weight Bearing Restrictions: per PT/OT home eval - Follow Up Care Current Providers and Referrals: Ayana Garrett MD [Primary Care Provider] - 1-2 days (suggest FU appt with ortho also re recurrent hip pain)
[2017-05-12 12:17] VITALS: BP 139/75; PULSE 94; O2SAT 94
[2017-05-12 12:20] VITALS: TEMP 98.7
--- NOTE | 2017-05-12 12:56 | ASMTCMCOM ---
CM Note CM Note Notes: Met w/pt and family, would like homecare. Requested [facility], referral sent and pt accepted. Final orders faxed, dtr to transport pt back home. CM available for any changes. Date Signed: 05/12/2017 12:46 PM Electronically Signed By:Susan Spencer RN
--- NOTE | 2017-05-12 16:09 | ASDISCHSUM ---
Discharge Information Plan Status:Home with Home Health Medically Cleared to Leave: Discharge Date:05/12/2017 02:30 PM CM D/C Disposition:Home Health Service ADT D/C Disposition:Home Health Service Projected Discharge Date:05/12/2017 03:00 PM Transportation at D/C:Family Discharge Delay Reason: Follow-Up Date:05/12/2017 03:00 PM Discharge Slot: Final Diagnosis: Placement Information Referral Type:*Home Health Care Services Referral ID:[id number] Provider Name:[facility] [place] Address 1:[address] Address 2:[place] [address] City:[place] Selection Factors: State:[place] Patient Contact Information Contact Name:ROBERT Relationship:Daughter Address:[address] City:[place] Alternate Phone: State/Zip Code:[place] [address] Email: Financial Information Financial Class: Primary Plan Desc:MEDICARE INPATIENT Primary Plan Number:[id number] Secondary Plan Desc: Secondary Plan Number: Assessment Information [facility] CM Progress Note CM Note CM Note Notes: Met w/pt and family, would like homecare. Requested [facility], referral sent and pt accepted. Final orders faxed, dtr to transport pt back home. CM available for any changes. Date Signed: 05/12/2017 12:46 PM Electronically Signed By:Ssuan Spencer RN Intervention Information
== END 2017-05-12 14:30 | disposition home health service (06) | DRG 175 ==
LOC: CED 15:25 → CEDHOLD 17:54 → F3E 19:45
PROVIDERS: ADMIT Internal Medicine; ATTEND Internal Medicine
DX: I26.99 Other pulmonary embolism without acute cor pulmonale (principal); G93.49 Other encephalopathy; I50.42 Chronic combined systolic (congestive) and diastolic (congestive) heart failure; J84.9 Interstitial pulmonary disease, unspecified; F03.90 Unspecified dementia, unspecified severity, without behavioral disturbance, psychotic disturbance, mood disturbance, and anxiety; M16.0 Bilateral primary osteoarthritis of hip; Z86.711 Personal history of pulmonary embolism
CPT/HCPCS: 71275-PO; 73502-PO; 80048-PO; 80076-PO; 81003-PO; 81015-PO; 84443-PO; 84484-PO; 85025-PO; 85378-PO; 85610-PO; 85730-PO; 96374; 97166-GO; G8987-GO-CL; G8988-GO-CI; G8989-GO-CL; J1170; J1650; J2405; Q9967

== ENCOUNTER 2017-05-24 01:08 | Inpatient (IN) | payer OTHER ==
--- NOTE | 2017-05-24 01:26 | EDPHY ---
H & P Stated Complaint: N/V, abd pain Source: Patient - Personal History Current Tetanus/Diphtheria Vaccine: Unsure Current Tetanus Diphtheria and Acellular Pertussis (TDAP): Unsure - Medical/Surgical History Hx Asthma: No Hx Chronic Respiratory Disease: No Hx Diabetes: No Hx Cardiac Disease: No Hx Renal Disease: No Hx Cirrhosis: No Hx Alcoholism: No Hx HIV/AIDS: No Hx Splenectomy or Spleen Trauma: No Other PMH: L LE tumor excision, HTN, appendectomy/cholecystectomy/UMBILICAL HERNIA/MULTIPLE BACK FX R/T DEGENERATIVE CHANGES, low K+, chronic UTI - Social History Smoking Status: Never smoked HPI/ROS: HPI CHIEF COMPLAINT: Nausea and abdominal pain HISTORY OF PRESENT ILLNESS: This patient is a 86-year-old female she presents emergency room with nausea and abdominal pain and abdominal bloating. Upon arrival to the emergency room is noted her heart rate is 150. Blood pressure 88 systolic. She complaining of abdominal pain and abdominal bloating. With associated nausea. She has not any vomiting. She reports to me that this started earlier today. Denies diarrhea. She denies chest pain or shortness of breath. Past Medical History: History of duodenal ulcer, dementia, cognitive decline, pulmonary embolism, hypertension, encephalopathy, diastolic heart function, interstitial lung disease. Past Surgical History: Appendectomy, cholecystectomy Social History: Lives locally. Denies drugs alcohol tobacco products Family History: Noncontributory. ROS REVIEW OF SYSTEMS: A comprehensive 10 point review of systems is otherwise negative aside from elements mentioned in the history of present illness. Exam Constitutional appears elderly, frail, triage nursing summary reviewed, vital signs reviewed, awake/alert. Vital signs noted tachycardic and hypotensive. Eyes normal conjunctivae and sclera, EOMI, PERRLA. HENT normal inspection, atraumatic, moist mucus membranes, no epistaxis, neck supple/ no meningismus, no raccoon eyes. Respiratory clear to auscultation bilaterally, normal breath sounds, no respiratory distress, no wheezing. Cardiovascular tachycardic, no murmur, no edema, distal pulses normal. Gastrointestinal soft, non-tender, no rebound, no guarding, normal bowel sounds, no distension, no pulsatile mass. Genitourinary no CVA tenderness. Musculoskeletal no midline vertebral tenderness, full range of motion, no calf swelling, no tenderness of extremities, no meningismus, good pulses, neurovascularly intact. Skin ecchymosis left shoulder, pink, warm, & dry, no rash, skin atraumatic. Neurologic awake, alert and oriented x 3, AAOx3, moves all 4 extremities equally, motor intact, sensory intact, CN II-XII intact, normal cerebellar, normal vision, normal speech. Psychiatric normal mood/affect. Heme/Lymph/Immune no lymphadenopathy. Differential diagnosis includes but is not limited to and in no particular order : Bowel obstruction, appendicitis, gallbladder disease, diverticulitis, colitis , enteritis, perforated viscus, gastritis, GERD, esophagitis, urinary tract infection, pyelonephritis, kidney stones Medical Decision Making: Plan for this patient IV established with IV fluid bolus, obtain EKG full livestock agent, CT scan abdomen pelvis, lactic acid, check electrolytes. Chest x-ray. Re-evaluation: EKG interpretation by me on record in [employer] system. Impression time of EKG 2:20 a.m., this is a repeat EKG, this is sinus tachycardia rate of 140. Possible Atrial Flutter. 0301: Patient is feeling better after multiple rounds of IV Zofran and Protonix. Her urinalysis still pending. Heart rate is down to 140 to 150 upon arrival. She did receive 1 L fluid. She does not have a fever. BNP is slightly elevated. CT scan abdomen pelvis with IV contrast is pending at this time for abdominal pain abdominal bloating and nausea. She has not had any vomiting here. She does have a history of an ulcer. This may be the cause of nausea. She received IV Protonix. 8 mg IV Zofran 1 L normal saline. When she arrived here blood pressure was low in the 80s however is currently 144 /108. (Blanco Gilman) Constitutional: Initial Vital Signs Temperature (C) 37 C 05/24/17 01:17 Heart Rate 154 H 05/24/17 01:17 Respiratory Rate 20 05/24/17 01:17 Blood Pressure 87/67 L 05/24/17 01:17 O2 Sat (%) 88 L 05/24/17 01:17 O2 Delivery Mode Nasal Cannula O2 (L/minute) 2.5 Allergies/Adverse Reactions: Penicillins Allergy (Intermediate, Verified 05/11/17 15:34) Other-Enter Comments Sulfa (Sulfonamide Antibiotics) Allergy (Intermediate, Verified 05/11/17 15:34) Other-Enter Comments amlodipine Allergy (Verified 05/14/17 08:46) carvedilol Allergy (Verified 05/14/17 08:46) hydralazine Allergy (Verified 05/14/17 08:46) levofloxacin Allergy (Verified 05/14/17 08:46) lisinopril Allergy (Verified 05/14/17 08:46) Home Medications: Medication Instructions Recorded Furosemide [Lasix 40 MG (*)] 40 mg PO DAILY #30 tab 11/02/16 Methyldopa [Methyldopa 250 mg (*)] 250 mg PO BID 05/11/17 Enoxaparin [Lovenox 60 MG (*)] 60 mg SC BID #20 syr 05/12/17 Lidocaine 5% [Lidoderm 5% Patch 1 ea TD DAILY21 #1 box 05/12/17 (*)] Warfarin Sodium [Coumadin 2MG (*)] 4 mg PO DAILY16 05/24/17 Medical Decision Making - Diagnostics Imaging Results: Imaging Impressions Chest X-Ray 05/24/17 01:31 Impression: 1. Chronic cardiomegaly without failure. 2. Completely resolved left lower lobe consolidation. Shoulder X-Ray 05/24/17 01:38 Impression: Severe osteoarthritis. No fracture. Deltoid region swelling. ED Course/Re-evaluation: The patient was signed out to me. I followed up on the patient's CT scan which was relatively unremarkable. The patient's urinalysis was also normal. She did have persistent tachycardia at a rate of 140-150. This was concerning for possible atrial flutter with 2-1 conduction. I gave the patient a dose of diltiazem which did slow her rate, however it appeared to be irregular rhythm which raises suspicion for SVT such as AVNRT or AVRT. She was admitted to the hospitalist, Dr. Davis. We will admit her to telemetry unit for further evaluation. (Lula Villalobos) - Data Points Laboratory Results: Laboratory Results 05/24/17 01:33 05/24/17 01:33 05/24/17 05/24/17 05/24/17 03:42 01:33 01:33 WBC RBC Hgb Hct MCV MCH MCHC RDW Plt Count MPV Neut % (Auto) Lymph % (Auto) [place] % (Auto) Eos % (Auto) Baso % (Auto) Nucleat RBC Rel Count Absolute Neuts (auto) Absolute Lymphs (auto) Absolute Monos (auto) Absolute Eos (auto) Absolute Basos (auto) Absolute Nucleated RBC Immature Gran % Immature Gran # PT INR APTT VBG Lactic Acid 1.8 mmol/L mmol/L (0.7-2.1) Sodium 131 mEq/L L mEq/L (134-144) Potassium 4.1 mEq/L mEq/L (3.5-5.2) Chloride 99 mEq/L mEq/L (97-110) Carbon Dioxide 19 mEq/l L mEq/l (22-31) Anion Gap 13 mEq/L mEq/L (8-16) BUN 8 mg/dL mg/dL (7-23) Creatinine 0.5 mg/dL L mg/dL (0.6-1.0) Estimated GFR > 60 Glucose 125 mg/dL H mg/dL (70-100) Calcium 8.8 mg/dL mg/dL (8.5-10.4) Magnesium 1.6 mg/dL mg/dL (1.6-2.3) Total Bilirubin 0.6 mg/dL mg/dL (0.1-1.4) Conjugated Bilirubin 0.2 mg/dL mg/dL (0.0-0.5) Unconjugated Bilirubin 0.4 mg/dL mg/dL (0.0-1.1) AST 21 IU/L IU/L (14-46) ALT 31 IU/L IU/L (9-52) Alkaline Phosphatase 106 IU/L IU/L (38-126) Creatine Kinase 66 IU/L IU/L (0-156) CK-MB (CK-2) Fraction 1.45 ng/mL ng/mL (0.00-3.19) Troponin I 0.021 ng/mL ng/mL (0.000-0.034) NT-Pro-B Natriuret Pep 2610 pg/mL H pg/mL (0-450) Total Protein 6.2 g/dL L g/dL (6.3-8.2) Albumin 3.5 g/dL g/dL (3.5-5.0) Lipase 67 IU/L IU/L (23-300) Urine Color PALE YELLOW Urine Appearance CLEAR Urine pH 7.0 (5.0-7.5) Ur Specific [place] 1.019 (1.002-1.030) Urine Protein NEGATIVE (NEGATIVE) Urine Ketones NEGATIVE (NEGATIVE) Urine Blood 1+ H (NEGATIVE) Urine Nitrate NEGATIVE (NEGATIVE) Urine Bilirubin NEGATIVE (NEGATIVE) Urine Urobilinogen NEGATIVE EU EU (0.2-1.0) Ur Leukocyte Esterase NEGATIVE (NEGATIVE) Urine RBC 1-3 /hpf /hpf (0-3) Urine WBC 1-3 /hpf /hpf (0-3) Ur Epithelial Cells TRACE /lpf /lpf (NONE-1+) Urine Glucose NEGATIVE (NEGATIVE) 05/24/17 05/24/17 01:33 01:33 WBC 13.21 10^3/uL H 10^3/uL (3.80-9.50) RBC 4.73 10^6/uL 10^6/uL (4.18-5.33) Hgb 14.6 g/dL g/dL (12.6-16.3) Hct 42.4 % % (38.0-47.0) MCV 89.6 fL fL (81.5-99.8) MCH 30.9 pg pg (27.9-34.1) MCHC 34.4 g/dL g/dL (32.4-36.7) RDW 13.1 % % (11.5-15.2) Plt Count 500 10^3/uL H 10^3/uL (150-400) MPV 8.8 fL fL (8.7-11.7) Neut % (Auto) 75.7 % H % (39.3-74.2) Lymph % (Auto) 11.0 % L % (15.0-45.0) [place] % (Auto) 11.8 % % (4.5-13.0) Eos % (Auto) 0.2 % L % (0.6-7.6) Baso % (Auto) 0.7 % % (0.3-1.7) Nucleat RBC Rel Count 0.0 % % (0.0-0.2) Absolute Neuts (auto) 10.00 10^3/uL H 10^3/uL (1.70-6.50) Absolute Lymphs (auto) 1.45 10^3/uL 10^3/uL (1.00-3.00) Absolute Monos (auto) 1.56 10^3/uL H 10^3/uL (0.30-0.80) Absolute Eos (auto) 0.03 10^3/uL 10^3/uL (0.03-0.40) Absolute Basos (auto) 0.09 10^3/uL 10^3/uL (0.02-0.10) Absolute Nucleated RBC 0.00 10^3/uL 10^3/uL (0-0.01) Immature Gran % 0.6 % % (0.0-1.1) Immature Gran # 0.08 10^3/uL 10^3/uL (0.00-0.10) PT 33.3 SEC H SEC (12.0-15.0) INR 3.21 H (0.83-1.16) APTT 43.6 SEC H SEC (23.0-38.0) VBG Lactic Acid Sodium Potassium Chloride Carbon Dioxide Anion Gap BUN Creatinine Estimated GFR Glucose Calcium Magnesium Total Bilirubin Conjugated Bilirubin Unconjugated Bilirubin AST ALT Alkaline Phosphatase Creatine Kinase CK-MB (CK-2) Fraction Troponin I NT-Pro-B Natriuret Pep Total Protein Albumin Lipase Urine Color Urine Appearance Urine pH Ur Specific Wall Urine Protein Urine Ketones Urine Blood Urine Nitrate Urine Bilirubin Urine Urobilinogen Ur Leukocyte Esterase Urine RBC Urine WBC Ur Epithelial Cells Urine Glucose Medications Given: Acetaminophen (Tylenol) 650 mg PO Q4HRS PRN PRN Reason: Pain, Mild/Fever, Can Take PO Stop: 11/20/17 04:27 Last Admin: 05/24/17 09:50 Dose: 650 mg Morphine Sulfate (Morphine) 1 - 2 mg IVP Q4HRS PRN PRN Reason: Pain, Severe Unable to Take PO Stop: 06/03/17 05:59 Last Admin: 05/24/17 06:32 Dose: 2 mg Discontinued Medications Diltiazem HCl (Cardizem 25 Mg/5 Ml Vial) 15 mg IVP EDNOW ONE Stop: 05/24/17 03:20 Last Admin: 05/24/17 04:01 Dose: 15 mg Enoxaparin Sodium (Lovenox) 60 mg SC BID [place] Stop: 11/20/17 09:14 Last Admin: 05/24/17 09:45 Dose: 60 mg Furosemide (Lasix) 40 mg PO DAILY [place] Stop: 11/20/17 09:14 Last Admin: 05/24/17 09:44 Dose: Not Given Sodium Chloride (Ns) 1,000 mls @ 0 mls/hr IV EDNOW ONE; Wide Open PRN Reason: Protocol Stop: 05/24/17 01:31 Last Admin: 05/24/17 01:45 Dose: 1,000 mls Methyldopa (Methyldopa) 250 mg PO BID [place] Stop: 11/20/17 09:14 Last Admin: 05/24/17 10:40 Dose: Not Given Morphine Sulfate (Morphine) 4 mg IVP EDNOW ONE Stop: 05/24/17 02:04 Last Admin: 05/24/17 02:37 Dose: 4 mg Ondansetron HCl (Zofran) 4 mg IVP EDNOW ONE Stop: 05/24/17 01:32 Last Admin: 05/24/17 01:45 Dose: 4 mg Ondansetron HCl (Zofran) 4 mg IVP EDNOW ONE Stop: 05/24/17 02:20 Last Admin: 05/24/17 02:37 Dose: 4 mg Pantoprazole Sodium (Protonix) 40 mg IVP EDNOW ONE Stop: 05/24/17 02:27 Last Admin: 05/24/17 02:56 Dose: 40 mg Departure - Departure Disposition: [facility] Acute Clinical Impression: Tachycardia Nausea & vomiting Qualifiers: Vomiting type: unspecified Vomiting Intractability: non-intractable Qualified Code(s): R11.2 - Nausea with vomiting, unspecified CHF (congestive heart failure) Qualifiers: Congestive heart failure type: unspecified congestive heart failure type Congestive heart failure chronicity: unspecified congestive heart failure chronicity Qualified Code(s): I50.9 - Heart failure, unspecified Condition: Fair
[2017-05-24] MEDS ORDERED: NS 1,000 ML IV ONE (01:30)
[2017-05-24] MEDS ORDERED: ONDANSETRON 4 MG/2 ML VIAL IVP ONE ×2 (01:31→02:19)
--- NOTE | 2017-05-24 01:36 | CPEKG ---
Heart Rate: 144 RR Interval: 417 P-R Interval: 128 QRSD Interval: 92 QT Interval: 324 QTC Interval: 502 P [place]: -85 QRS [place]: 34 T Wave [place]: 85 EKG Severity - ABNORMAL ECG - EKG Impression: SINUS OR ECTOPIC ATRIAL TACHYCARDIA EKG Impression: MULTIPLE VENTRICULAR PREMATURE COMPLEXES EKG Impression: LEFT VENTRICULAR HYPERTROPHY EKG Impression: BORDERLINE PROLONGED QT INTERVAL Electronically Signed By: Blanco Gilman 24-May-2017 03:00:34
[2017-05-24 01:46] LABS: % IMMATURE GRANULYOCYTES 0.6 % (0.0-1.1); ABSOLUTE IMMATURE GRANULOCYTES 0.08 10^3/uL (0.00-0.10); ADD DIFF? NO; ADD MORPH? NO; ADD SCAN? NO; ATYPICAL LYMPHOCYTE FLAG 0 (0-99); FRAGMENT RBC FLAG 0 (0-99); HEMATOCRIT 42.4 % (38.0-47.0); HEMOGLOBIN 14.6 g/dL (12.6-16.3); LEFT SHIFT FLG 10 (0-99); LIPEMIA HEMOLYSIS FLAG 90 (0-99); MEAN CELL HEMOGLOBIN 30.9 pg (27.9-34.1); MEAN CELL HEMOGLOBIN CONCENTR. 34.4 g/dL (32.4-36.7); MEAN CELL VOLUME 89.6 fL (81.5-99.8); MEAN PLATELET VOLUME 8.8 fL (8.7-11.7); PLATELET CLUMPS FLAG 0 (0-99); PLATELET COUNT 500 10^3/uL (150-400); RED BLOOD CELL COUNT 4.73 10^6/uL (4.18-5.33); RED CELL DISTRIBUTION WIDTH 13.1 % (11.5-15.2)
[2017-05-24 01:55] LABS: INR 3.21 (0.83-1.16); PROTIME(PATIENT) 33.3 SEC (12.0-15.0)
[2017-05-24 01:56] LABS: APTT 43.6 SEC (23.0-38.0)
[2017-05-24 02:05] LABS: ALANINE AMINOTRANSFERASE 31 IU/L (9-52); ALBUMIN 3.5 g/dL (3.5-5.0); ALKALINE PHOSPHATASE 106 IU/L (38-126); ANION GAP 13 mEq/L (8-16); ASPARTATE AMINOTRANSFERASE 21 IU/L (14-46); BILIRUBIN,TOTAL 0.6 mg/dL (0.1-1.4); BILIRUBIN-CONJUGATED 0.2 mg/dL (0.0-0.5); BILIRUBIN-UNCONJUGATED 0.4 mg/dL (0.0-1.1); CALCIUM 8.8 mg/dL (8.5-10.4); CARBON DIOXIDE 19 mEq/l (22-31); CHLORIDE 99 mEq/L (97-110); CREATININE 0.5 mg/dL (0.6-1.0); GLOMERULAR FILTRATION RATE > 60; GLUCOSE 125 mg/dL (70-100); MAGNESIUM 1.6 mg/dL (1.6-2.3); POTASSIUM 4.1 mEq/L (3.5-5.2); SODIUM 131 mEq/L (134-144); TOTAL PROTEIN 6.2 g/dL (6.3-8.2)
[2017-05-24 02:17] LABS: CREATINE KINASE-MB FRACTION 1.45 ng/mL (0.00-3.19); TROPONIN I 0.021 ng/mL (0.000-0.034)
--- NOTE | 2017-05-24 02:22 | CPEKG ---
Heart Rate: 140 RR Interval: 429 QRSD Interval: 84 QT Interval: 356 QTC Interval: 544 P [place]: 0 QRS [place]: 20 T Wave [place]: 6 EKG Severity - ABNORMAL ECG - EKG Impression: SINUS TACHYCARDIA EKG Impression: NONSPECIFIC T ABNORMALITIES, INFERIOR LEADS EKG Impression: PROLONGED QT INTERVAL Electronically Signed By: Blanco Gilman 24-May-2017 03:00:34
[2017-05-24] MEDS ORDERED: PANTOPRAZOLE SODIUM 40 MG VIAL IVP ONE (02:26)
[2017-05-24] MEDS ORDERED: IOPAMIDOL (ISOVUE-300) 100 ML BTL ONE (02:33)
[2017-05-24] MEDS ORDERED: DILTIAZEM 25 MG/5 ML VIAL IVP ONE (03:19)
[2017-05-24 04:16] LABS: COLOR PALE YELLOW; LEUKOCYTE ESTERASE,URINE NEGATIVE (NEGATIVE); NITRITE,URINE NEGATIVE (NEGATIVE)
[2017-05-24] MEDS ORDERED: ONDANSETRON 4 MG/2 ML VIAL IVP PRN (04:28)
[2017-05-24] MEDS ORDERED: ONDANSETRON DISINTEGRATING 4 MG TAB PO PRN (04:28)
[2017-05-24] MEDS ORDERED: ACETAMINOPHEN 325 MG TAB PO PRN (04:28)
--- NOTE | 2017-05-24 05:03 | CPEKG ---
Heart Rate: 128 RR Interval: 469 P-R Interval: 155 QRSD Interval: 84 QT Interval: 332 QTC Interval: 485 P [place]: 0 QRS [place]: 32 T Wave [place]: 5 EKG Severity - ABNORMAL ECG - EKG Impression: SINUS TACHYCARDIA EKG Impression: MULTIPLE VENTRICULAR PREMATURE COMPLEXES EKG Impression: CONSIDER LEFT VENTRICULAR HYPERTROPHY Electronically Signed By: Lula Villalobos 25-May-2017 07:01:01
--- NOTE | 2017-05-24 05:22 | PDGENHP ---
History and Physical - Chief Complaint Abdominal pain - History of Present Illness 86 yo F w/ recent PE, HTN, CHF, CHRF, and mild dementia presents with 1 day of fatigue and abdominal pain. Patient is a poor historian and states that all day yesterday she just felt "sick". When pressed on what this means, she says her stomach and left should heart, and she felt fatigued. She was admitted earlier this month with pulmonary embolism and was started on warfarin, which she has been taking. She denies fevers, chills, CP, SOB, dysuria, and diarrhea. In the ED a CT of her abdomen showed no acute etiology for pain. Shoulder imaging was also without acute findings. She was noted to be tachycardic, however, and this is the reason for admission. She has no prior hx of SVT, per daughter. History Information - Allergies/Home Medication List Allergies/Adverse Reactions: Penicillins Allergy (Intermediate, Verified 05/11/17 15:34) Other-Enter Comments Sulfa (Sulfonamide Antibiotics) Allergy (Intermediate, Verified 05/11/17 15:34) Other-Enter Comments amlodipine Allergy (Verified 05/14/17 08:46) carvedilol Allergy (Verified 05/14/17 08:46) hydralazine Allergy (Verified 05/14/17 08:46) levofloxacin Allergy (Verified 05/14/17 08:46) lisinopril Allergy (Verified 05/14/17 08:46) Home Medications: Ranitidine HCl [Zantac] 150 mg PO DAILY PRN 07/07/16 [Last Taken 05/10/17] Methyldopa [Methyldopa 250 mg (*)] 250 mg PO BID 05/11/17 [Last Taken 05/10/17] I have personally reviewed and updated: family history, medical history - Past Medical History Additional medical history: Hypertension. Acute PE with RV strain 09/2015. h/o duodenal ulcer. osteoporosis with compression fractures. dementia. incarcerated hernia - Surgical History Additional surgical history: umbilical hernia repair (09/2015). appendectomy. cholecystectomy - Family History Positive for: non-pertinent Additional family history: No recent sick family contacts, no family history of venous thromboembolism - Social History Smoking Status: Never smoked Additional social history: Pt lives with her daughter in [place]. Review of Systems Review of Systems: ROS: 10pt was reviewed & negative except for what was stated in HPI & below Physical Exam Physical Exam: Temp Pulse Resp BP Pulse Ox 37 C 121 H 16 105/81 H 96 05/24/17 01:17 05/24/17 04:30 05/24/17 04:30 05/24/17 04:30 05/24/17 04:30 O2 (L/minute) 2 Constitutional: no apparent distress, chronically ill appearing Eyes: PERRL, EOMI Ears, Nose, Mouth, Throat: moist mucous membranes, no oral mucosal ulcers Cardiovascular: regular rate and rhythym, tachycardia Respiratory: no respiratory distress, no rales or rhonchi Gastrointestinal: normoactive bowel sounds, soft, non-tender abdomen Skin: warm, normal color Neurologic: AAOx3, CN II-XII Intact Psychiatric: interacting appropriately, not anxious Lab Data & Imaging Review 05/24/17 01:33 05/24/17 01:33 WBC 13.21 10^3/uL (3.80-9.50) H 05/24/17 01:33 RBC 4.73 10^6/uL (4.18-5.33) 05/24/17 01:33 Hgb 14.6 g/dL (12.6-16.3) 05/24/17 01:33 Hct 42.4 % (38.0-47.0) 05/24/17 01:33 MCV 89.6 fL (81.5-99.8) 05/24/17 01:33 MCH 30.9 pg (27.9-34.1) 05/24/17 01:33 MCHC 34.4 g/dL (32.4-36.7) 05/24/17 01:33 RDW 13.1 % (11.5-15.2) 05/24/17 01:33 Plt Count 500 10^3/uL (150-400) H 05/24/17 01:33 MPV 8.8 fL (8.7-11.7) 05/24/17 01:33 Neut % (Auto) 75.7 % (39.3-74.2) H 05/24/17 01:33 Lymph % (Auto) 11.0 % (15.0-45.0) L 05/24/17 01:33 [place] % (Auto) 11.8 % (4.5-13.0) 05/24/17 01:33 Eos % (Auto) 0.2 % (0.6-7.6) L 05/24/17 01:33 Baso % (Auto) 0.7 % (0.3-1.7) 05/24/17 01:33 Nucleat RBC Rel Count 0.0 % (0.0-0.2) 05/24/17 01:33 Absolute Neuts (auto) 10.00 10^3/uL (1.70-6.50) H 05/24/17 01:33 Absolute Lymphs (auto) 1.45 10^3/uL (1.00-3.00) 05/24/17 01:33 Absolute Monos (auto) 1.56 10^3/uL (0.30-0.80) H 05/24/17 01:33 Absolute Eos (auto) 0.03 10^3/uL (0.03-0.40) 05/24/17 01:33 Absolute Basos (auto) 0.09 10^3/uL (0.02-0.10) 05/24/17 01:33 Absolute Nucleated RBC 0.00 10^3/uL (0-0.01) 05/24/17 01:33 Immature Gran % 0.6 % (0.0-1.1) 05/24/17 01:33 Immature Gran # 0.08 10^3/uL (0.00-0.10) 05/24/17 01:33 PT 33.3 SEC (12.0-15.0) H 05/24/17 01:33 INR 3.21 (0.83-1.16) H 05/24/17 01:33 APTT 43.6 SEC (23.0-38.0) H 05/24/17 01:33 VBG Lactic Acid 1.8 mmol/L (0.7-2.1) 05/24/17 01:33 Sodium 131 mEq/L (134-144) L 05/24/17 01:33 Potassium 4.1 mEq/L (3.5-5.2) 05/24/17 01:33 Chloride 99 mEq/L (97-110) 05/24/17 01:33 Carbon Dioxide 19 mEq/l (22-31) L 05/24/17 01:33 Anion Gap 13 mEq/L (8-16) 05/24/17 01:33 BUN 8 mg/dL (7-23) 05/24/17 01:33 Creatinine 0.5 mg/dL (0.6-1.0) L 05/24/17 01:33 Estimated GFR > 60 05/24/17 01:33 Glucose 125 mg/dL (70-100) H 05/24/17 01:33 Calcium 8.8 mg/dL (8.5-10.4) 05/24/17 01:33 Magnesium 1.6 mg/dL (1.6-2.3) 05/24/17 01:33 Total Bilirubin 0.6 mg/dL (0.1-1.4) 05/24/17 01:33 Conjugated Bilirubin 0.2 mg/dL (0.0-0.5) 05/24/17 01:33 Unconjugated Bilirubin 0.4 mg/dL (0.0-1.1) 05/24/17 01:33 AST 21 IU/L (14-46) 05/24/17 01:33 ALT 31 IU/L (9-52) 05/24/17 01:33 Alkaline Phosphatase 106 IU/L (38-126) 05/24/17 01:33 Creatine Kinase 66 IU/L (0-156) 05/24/17 01:33 CK-MB (CK-2) Fraction 1.45 ng/mL (0.00-3.19) 05/24/17 01:33 Troponin I 0.021 ng/mL (0.000-0.034) 05/24/17 01:33 NT-Pro-B Natriuret Pep 2610 pg/mL (0-450) H 05/24/17 01:33 Total Protein 6.2 g/dL (6.3-8.2) L 05/24/17 01:33 Albumin 3.5 g/dL (3.5-5.0) 05/24/17 01:33 Lipase 67 IU/L (23-300) 05/24/17 01:33 Urine Color PALE YELLOW 05/24/17 03:42 Urine Appearance CLEAR 05/24/17 03:42 Urine pH 7.0 (5.0-7.5) 05/24/17 03:42 Ur Specific [place] 1.019 (1.002-1.030) 05/24/17 03:42 Urine Protein NEGATIVE (NEGATIVE) 05/24/17 03:42 Urine Ketones NEGATIVE (NEGATIVE) 05/24/17 03:42 Urine Blood 1+ (NEGATIVE) H 05/24/17 03:42 Urine Nitrate NEGATIVE (NEGATIVE) 05/24/17 03:42 Urine Bilirubin NEGATIVE (NEGATIVE) 05/24/17 03:42 Urine Urobilinogen NEGATIVE EU (0.2-1.0) 05/24/17 03:42 Ur Leukocyte Esterase NEGATIVE (NEGATIVE) 05/24/17 03:42 Urine RBC 1-3 /hpf (0-3) 05/24/17 03:42 Urine WBC 1-3 /hpf (0-3) 05/24/17 03:42 Ur Epithelial Cells TRACE /lpf (NONE-1+) 05/24/17 03:42 Urine Glucose NEGATIVE (NEGATIVE) 05/24/17 03:42 Imaging Review: CT A/P without acute findings. Visualized and Interpreted EKG results: Yes EKG Interpretation: Positive for: other (Regular tachycardia, possibly atrial tachycardia) Assessment & Plan Assessment: 86 yo F w/ CHF, HTN, CHRF, recent PE presented with abdominal pain of unclear etiology and admitted for tachycardia. Plan: 1. Tachycardia - Regular, narrow complex tachycardia with fairly constant rate. P waves visible in I and II but abnormal in morphology. Exact rhythm is difficult to ascertain, possibly a focal atrial tachycardia. Other considerations include AVRT/AVNRT and sinus tach, although patient is comfortable with no CT or lab findings to explain ST. Patient is asymptomatic and hemodynamically stable. - Monitor on telemetry - Cardiology consult - Consider adenosine for diagnostic clarification 2. CHF - Systolic and diastolic heart failure noted on most recent TTE. Reviewed Dr. Jim's H&P from recent hospitalization detailing history. Patient previously on BB and MECHE, but unclear is she is still taking these as patient/daughter cannot recall and not on discharge medication list. Lasix 40 mg qD on list and patient's daughter states she is taking this. She appears euvolemic and compensated on exam. 3. PE - Has had multiple PE's, most recently earlier this month. She is taking warfarin and INR is slightly supratherapeutic. Continue warfarin, monitor INR. 4 CHRF - Perhaps related to above w/ contribution from CHF, on 3 L/min O2 continuously. She is stable at this level currently. 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 5. Hx of duodenal ulcer - Denies any melena or BRBPR and not anemic. Diet - Regular Code - Full Ppx - Warfarin Dispo - Admit to PCU for observation with telemetry.
[2017-05-24] MEDS ORDERED: oxyCODONE IR 5 MG TAB PO PRN (06:00)
[2017-05-24] MEDS ORDERED: NON-FORMULARY NEW DRUG (Ranitidine Hcl [Zantac] 150 MG) PO PRN (09:07)
[2017-05-24] MEDS ORDERED: FAMOTIDINE 20 MG TAB PO PRN (09:14)
[2017-05-24] MEDS ORDERED: FUROSEMIDE 40 MG TAB PO SCH (09:15)
[2017-05-24] MEDS ORDERED: ENOXAPARIN 60 MG/0.6 ML SYR SC SCH (09:15)
[2017-05-24] MEDS ORDERED: METHYLDOPA 250 MG TAB PO SCH (09:15)
--- NOTE | 2017-05-24 11:06 | CPEKG ---
Heart Rate: 101 RR Interval: 594 P-R Interval: 192 QRSD Interval: 86 QT Interval: 360 QTC Interval: 467 P [place]: -22 QRS [place]: 22 T Wave [place]: 170 EKG Severity - ABNORMAL ECG - EKG Impression: SINUS TACHYCARDIA EKG Impression: MULTIPLE VENTRICULAR PREMATURE COMPLEXES EKG Impression: ABNORMAL T, CONSIDER ISCHEMIA, LATERAL LEADS Electronically Signed By: Valeriy Bedolla 25-May-2017 08:40:57
[2017-05-24] MEDS ORDERED: DILTIAZEM 30 MG TAB PO SCH (12:00)
--- NOTE | 2017-05-24 12:21 | HOSPPROG ---
Hospitalist Progress Note Assessment/Plan: New patient encounter 86 yo F w/ CHF, HTN, CHRF, recent PE presented with abdominal pain of unclear etiology admitted for tachycardia. #Tachycardia, Atrial: narrow complex -Cards to see -Likely start Metoprol -HR now improved, so will wait for Cardiology reccs #Abdominal pain, ?Chronic, ?GERD -trial of Protonix daily. If still symptomatic, change to BID #Nausea -Zofran PRN #CHF, systolic and diastolic, not in exacerbation -somewhat low BP -will hold Lasix today, and restart in am at 20mg daily -will likely have BB started per above -Previously on an MECHE-I, unclear why it was stopped. Consider restarting if BP can handle it. #Recent PE on Coumadin with slight elevation of INR -Hold Warfarin today -Pharm to dose #CHRF: at baseline of 3L/min O2 16/02 #Weakness and Deconditioning: PT/OT eval Diet - Regular Code - Full Ppx - Warfarin Dispo - Change to inpatient Subjective: Still with abd pain. Some nause. Oral intake is decreased. No resp symptoms. Still fatigued. HR has improved. BP slightly decreased. Objective: Vital Signs Temp Pulse Resp BP Pulse Ox 37.6 C 77 16 128/71 H 96 05/24/17 08:03 05/24/17 11:18 05/24/17 11:18 05/24/17 11:18 05/24/17 11:18 05/23/17 05/24/17 05/25/17 05:59 05:59 05:59 Intake Total 1080 Output Total 800 Balance 280 PT 33.3 SEC (12.0-15.0) H 05/24/17 01:33 INR 3.21 (0.83-1.16) H 05/24/17 01:33 - Physical Exam Constitutional: chronically ill appearing Eyes: PERRL, EOMI Ears, Nose, Mouth, Throat: moist mucous membranes Cardiovascular: tachycardia Respiratory: no respiratory distress Gastrointestinal: normoactive bowel sounds, soft, non-tender abdomen Skin: warm Musculoskeletal: generalized weakness Neurologic: AAOx3 Psychiatric: interacting appropriately, not anxious, not encephalopathic ICD10 Worksheet Patient Problems: Problems Problem Status Onset CHF (congestive heart failure) Acute Nausea & vomiting Acute Tachycardia Acute Chronic Disease Mgmt/Transitional Care Acute Elevated troponin Acute Fatigue Acute Hyponatremia Acute Hypoxia Acute Near syncope Acute Pneumonia Acute Pulmonary embolism Acute Right hip pain Acute UTI (urinary tract infection) Acute Urinary tract infection Acute
--- NOTE | 2017-05-24 12:56 | GCON ---
[f rep st] CONSULTATION CARDIOLOGY CONSULTATION DATE OF CONSULTATION: 05/24/2017 REASON FOR CONSULTATION: Arrhythmia. HISTORY OF PRESENT ILLNESS: The patient is an 86-year-old female. She is seen in consultation here on the Telemetry Unit of [facility]. She has a cardiovascular history significant for a cardiomyopathy. This is associated with a history of acute systolic heart failure. Additionally, she has a history of episodes of paroxysmal atrial fibrillation and it is thought that potentially he r episodes of atrial fibrillation could be contributing to her heart failure. In reviewing her previous echocardiograms, she had an echocardiogram in September of 2015 with a normal e jection fraction, in June of 2016 with an ejection fraction of 45% to 50%, and in October of 2016 a n ejection fraction of 35%. Interestingly, it does not appear that she has had regular followup visi ts with Cardiology. Additionally, she has a history of a recent hospitalization on May 12 of s month with a pulmonary embolism. She has been maintained on systemic anticoagulation with Coumadin since then. She was admitted to the hospital last night now with complaints of significant nausea. She has had n ausea now for a couple of days. This is not associated with abdominal pain and she has not had emesi s. Additionally, she has had symptoms of fatigue. She notes no shortness of breath. She denies pal pitations. She denies chest discomfort. On arrival here, she was hemodynamically stable. It was noted that her heart rate was in the 130s. Her initial electrocardiogram demonstrated a narrow complex tachycardia at 144 beats per minute. She has inverted P-waves in lead 2. This would suggest an atrial tachycardia or possibly two-to-one atr ial flutter. She has had subsequent electrocardiograms with similar findings. Her ECG this morning demonstrates sinus rhythm at 101 beats per minute. She has a different P-wave morphology. There are frequent PVCs noted. She has anterolateral T-wave inversions. Cardiac enzymes have been negative, with a troponin 0.021 and an N-terminal proBNP elevated at 2610. PAST MEDICAL HISTORY: 1. Cardiomyopathy with a history of prior systolic congestive heart failure. 2. Hypertension. 3. History of acute PE. 4. Duodenal ulcer. 5. Osteoporosis. 6. Compression fractures. 7. Dementia. 8. History of inguinal hernia. SURGICAL HISTORY: She has had previous hernia repair, appendectomy and a cholecystectomy. FAMILY HISTORY: Negative at this point. SOCIAL HISTORY: She lives with her daughter here in [place]. She does not abuse alcohol or drugs. REVIEW OF SYSTEMS: Difficult to perform due to the patient's underlying dementia and tangential thou ghts. PHYSICAL EXAMINATION: VITAL SIGNS: Her blood pressure is 128/71 with a mean of 90, her heart rate i s currently in the 70s. She is not orthostatic. She is on 3 L, saturating 96%. GENERAL: She is a healthy 86-year-old, age-appropriate female, in no acute distress. NECK: No jugular venous distenti on, adenopathy or thyromegaly. RESPIRATORY: She speaks in full sentences using no accessory muscles . On auscultation, she has right basilar rales which clear with deep inspiration. CARDIAC: Precord ial inspection is unremarkable. PMI is nondisplaced. On auscultation, she has a regular rate and rh ythm. She has no murmurs, gallops, or rubs. ABDOMEN: Soft, nontender. She has no masses or hepato splenomegaly. Abdominal aorta is nonpalpable. EXTREMITIES: Demonstrate 1/2 inch edema located in t he feet and ankles bilaterally. IMAGING: Echocardiograms are as described above. Her chest x-ray demonstrates cardiomegaly without pulmonary edema. IMPRESSION: The patient is 86 years old. She has a history of a cardiomyopathy presumed to be tachy cardia mediated given her history of atrial fibrillation in the past. She has a history of acute sys tolic heart failure. She presents now with abdominal symptoms, including nausea. She is found to be in a rapid SVT, which appears to be either an atrial tachycardia or more likely two-to-one atrial fl utter. Fortunately, she is on systemic anticoagulation as part of her treatment, given her history of recent PE. Additionally today, she does not appear to be in overt congestive heart failure. She does have mild ankle edema, although no indication of pulmonary rales and her chest x-ray is benign. RECOMMENDATIONS: 1. I would like to start her on beta blockers. I have written for metoprolol 25 mg twice daily. 2. She will continue her usual dose of Lasix. 3. It is unclear to me why she was given systemic anticoagulation in the form of Lovenox in the sett ing of an INR that is 3.21. Therefore, I have written to stop this medication. 4. Will repeat her INR tomorrow. 5. Will continue to monitor her on telemetry. 6. I will order an echocardiogram for followup on her ejection fraction, given the steady declining nature of her ejection fraction over the last year. 7. Will consider some form of afterload reduction here in the near future, depending on her overall hemodynamics. 8. At this point, given her advanced age and multiple comorbidities, I do not think we would proceed with an aggressive invasive evaluation. 9. Will follow along with you. /[id number]/MODL
--- NOTE | 2017-05-24 13:04 | PDMN ---
Medical Necessity Medical necessity: C/M review: est. > 2 MN LOS for acute atrial tachycardia, acute and persistent abdominal pain of unclear etiology, nausea, generalized weakness and deconditioning requiring planned Cardiology consult, ongoing cardiac monitoring, IV Morphine, comorbid recent hospitalization for pulmonary embolism treated with Coumadin, systolic and diastolic CHF, chronic hypoxic respiratory failure with baseline O2 3L/min continuous requirement per Hospitalist progress note.
[2017-05-24] MEDS: PANTOPRAZOLE SODIUM 40 MG TAB PO SCH (14:03)
[2017-05-24] MEDS ORDERED: WARFARIN SODIUM 2 MG TAB PO SCH (16:00)
--- NOTE | 2017-05-24 16:06 | ASMTCMCOM ---
CM Note CM Note Notes: 86 year old female admitted for Afib, abdominal pain, tachy, fatigue. Shehas a hx of a recent PE, HTN, CHF, mild dementia, chronic respiratory failure, OP w/compression fx's. Patient lives w/her daughter. OT recommends at this time, HC vs SNF. No PT Notes as yet. CM to follow for discharge needs. Date Signed: 05/24/2017 04:06 PM Electronically Signed By:Hali Yanez LCSW
[2017-05-24] MEDS: METOPROLOL TARTRATE 25 MG TAB PO SCH (20:35)
[2017-05-24] MEDS ORDERED: LIDOCAINE 5% 1 EA PATCH TD SCH (21:00)
[2017-05-25 04:25] LABS: % IMMATURE GRANULYOCYTES 0.4 % (0.0-1.1); ABSOLUTE IMMATURE GRANULOCYTES 0.03 10^3/uL (0.00-0.10); ADD DIFF? NO; ADD MORPH? NO; ADD SCAN? NO; ATYPICAL LYMPHOCYTE FLAG 0 (0-99); FRAGMENT RBC FLAG 0 (0-99); HEMATOCRIT 41.2 % (38.0-47.0); HEMOGLOBIN 12.9 g/dL (12.6-16.3); LEFT SHIFT FLG 0 (0-99); LIPEMIA HEMOLYSIS FLAG 80 (0-99); MEAN CELL HEMOGLOBIN 29.9 pg (27.9-34.1); MEAN CELL HEMOGLOBIN CONCENTR. 31.3 g/dL (32.4-36.7); MEAN CELL VOLUME 95.4 fL (81.5-99.8); MEAN PLATELET VOLUME 8.9 fL (8.7-11.7); PLATELET CLUMPS FLAG 10 (0-99); PLATELET COUNT 418 10^3/uL (150-400); RED BLOOD CELL COUNT 4.32 10^6/uL (4.18-5.33); RED CELL DISTRIBUTION WIDTH 13.2 % (11.5-15.2)
[2017-05-25 04:38] LABS: INR 3.29 (0.83-1.16)
[2017-05-25 04:40] LABS: ANION GAP 10 mEq/L (8-16); CALCIUM 8.7 mg/dL (8.5-10.4); CARBON DIOXIDE 26 mEq/l (22-31); CHLORIDE 101 mEq/L (97-110); CREATININE 0.4 mg/dL (0.6-1.0); GLOMERULAR FILTRATION RATE > 60; GLUCOSE 86 mg/dL (70-100); POTASSIUM 4.4 mEq/L (3.5-5.2); SODIUM 137 mEq/L (134-144)
[2017-05-25] MEDS: PANTOPRAZOLE SODIUM 40 MG TAB PO SCH (08:49)
[2017-05-25] MEDS ORDERED: FUROSEMIDE 40 MG TAB PO SCH (09:15)
--- NOTE | 2017-05-25 10:57 | ECHO ---
[email or web address] [address] [address] Main: [phone] Fax: Transthoracic Echocardiogram Name: KING HART MR#: [id number] Study Date: 05/25/2017 Study Time: 09:07 AM Date of : 1930 Age: 86 year(s) Height: 157.5 cm (62 in.) Weight: 54.43 kg (120 lb.) BSA: 1.54 m2 Gender: Female Examination: Echo Indication: Historty of cardiomyopathy/f/u on EF Image Quality: Contrast: Requested by: Cornell Beard BP: 149 mmHg/90 mmHg Heart Rate: Rhythm: Indication: Historty of cardiomyopathy/f/u on EF Procedure Staff Spinning Doffer: Noelle Chris Physician: Cornell Beard Requesting Provider: Conclusions: Normal size left ventricle. Mild concentric LV hypertrophy. Mildly reduced systolic LV function. The ejection fraction is estimated to be 40-45 %. No regional wall motion abnormality. The left atrium is mildly dilated. Mild mitral annular calcification. Mild mitral valve regurgitation is present. 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 Mild tricuspid regurgitation is present. The pulmonary artery pressure is normal. Trivial anterior pericardial effusion. Measurements: Chambers Valvular Assessment AV/MV Valvular Assessment TV/PV Normal Normal Normal Name Value Range Name Value Range Name Value Range Ao Beulah (MM): 3.8 cm (2.2 cm-3.7 AV Vmax: 1.16 m/s (1 m/s-1.7 TR Vmax: 2.48 mm/s ( - ) cm) m/s) TR PGmax: 25 mmHg ( - ) IVSd (2D): 0.9 cm (0.6 cm-1.1 AV maxP mmHg ( - ) syst. PAP: 30 mmHg ( - ) cm) MV E Vmax: 1.53 m/s ( - ) LVDd (2D): 5.4 cm (3.9 cm-5.3 MV A Vmax: 0.31 m/s ( - ) cm) MV E/A: 4.94 ( - ) LVDs (2D): 3.3 cm (2.1 cm-4 cm) LVPWd (2D): 1.1 cm ( - ) LVEF (BP): 41 % (>=55 %) EF Range: 40-45 % Continued Measurements: Patient: KING HART Study Date: 05/25/2017 Page 1 of 2 09:07 AM Chambers Valvular Assessment AV/MV Valvular Assessment TV/PV Name Value Name Value Name Value LADs: 4.2 cm MV E/E' Septal: 15.10 CVP (est.): 5 mmHg LADs Lon.8 cm MV E/E' Lateral: 8.20 LA Area: 21.3 cm2 LA Volume: 67 ml LA Volume Index: 43.5 ml/m2 Additional Vessels Name Value Ao Ascendin.6 cm Findings: Left Ventricle: Normal size left ventricle. Mild concentric LV hypertrophy. Mildly reduced systolic LV function. The ejection fraction is estimated to be 40-45 %. No regional wall motion abnormality. Right Ventricle: Normal size right ventricle. Left Atrium: The left atrium is mildly dilated. Right Atrium: The right atrium is normal in size. Mitral Valve: Mild mitral annular calcification. Mild mitral valve regurgitation is present. 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 Tricuspid Valve: The tricuspid valve is normal in appearance and function. Mild tricuspid regurgitation is present. The pulmonary artery pressure is normal. Pulmonic Valve: The pulmonic valve is normal in appearance and function. Trivial pulmonic valve regurgitation. Aorta: The aorta is normal. Pericardium: Trivial anterior pericardial effusion. (No Signature Object) Patient: KING HART Study Date: 05/25/2017 Page 2 of 2 09:07 AM [id number]
[2017-05-25] MEDS ORDERED: METOPROLOL TARTRATE 25 MG TAB PO SCH ×2 (10:58→11:15)
[2017-05-25] MEDS: METOPROLOL TARTRATE 25 MG TAB PO SCH (11:15)
--- NOTE | 2017-05-25 11:19 | SOAPPROG ---
[facility] Progress Note Assessment/Plan: Assessment: 1. Paroxysmal atrial flutter/fibrillation. 2. History of mild CM with out CHF. 3. Resolved symptoms of nausea. 4. Hx of PE on systemic anticoagulation. Plan: 1. At this point she can be discharged. 2. Continue metoprolol 25 mg PO BID. 3. Continue coumadin with goal INR of 2 to 3. 4. See me in clinic in 2 to 3 weeks. 05/25/17 11:19 Subjective: Symptoms of nausea have resolved. HR's still not adequately controlled however has only received a single dose of metoprolol. Objective: Vital Signs Temp Pulse Resp BP Pulse Ox 37.1 C 92 20 149/90 H 88 L 05/25/17 07:42 05/25/17 07:42 05/25/17 07:42 05/25/17 07:42 05/25/17 09:11 Laboratory Results 05/25/17 03:43 05/25/17 03:43 05/24/17 05/25/17 05/26/17 05:59 05:59 05:59 Intake Total 1150 Output Total 900 Balance 250 PT 34.0 SEC (12.0-15.0) H 05/25/17 03:43 INR 3.29 (0.83-1.16) H 05/25/17 03:43 Physical Exam - Physical Exam General Appearance: WD/WN, no apparent distress Respiratory: lungs clear, No crackles, No rales, No rhonchi Cardiac/Chest: irregularly irregular Peripheral Pulses: 2+: carotid (R), carotid (L) ICD10 Worksheet Patient Problems: Problems Problem Status Onset Fatigue Acute Right hip pain Acute Pulmonary embolism Acute Chronic Disease Mgmt/Transitional Care Acute Nausea & vomiting Acute Hyponatremia Acute Urinary tract infection Acute Near syncope Acute Tachycardia Acute Pneumonia Acute Hypoxia Acute UTI (urinary tract infection) Acute CHF (congestive heart failure) Acute Elevated troponin Acute
[2017-05-25 11:26] VITALS: BP 126/91; PULSE 114; RESP 16; TEMP 99.1; O2SAT 93
--- NOTE | 2017-05-25 12:15 | ASMTCMCOM ---
CM Note CM Note Notes: Spoke with patient and WILFRED - patient lives with WILFRED and daughter, and home is set up safely for patient. She is not interested in homecare at this time although she thanked me for the information. PT recommended home care, as well (patient declined) and gave patient/family loan closet information for DME. CM available if needs/desires change. Date Signed: 05/25/2017 12:15 PM Electronically Signed By:Merry Sanchez RN
--- NOTE | 2017-05-25 13:34 | HOSPPROG ---
Hospitalist Progress Note Assessment/Plan: #Tachycardia, Atrial: narrow complex #Abdominal pain, ?Chronic, ?GERD -trial of Protonix daily. If still symptomatic, change to BID #Nausea -Zofran PRN #CHF, systolic and diastolic, not in exacerbation -somewhat low BP -Previously on an MECHE-I, unclear why it was stopped. Consider restarting if BP can handle it. #Recent PE on Coumadin with slight elevation of INR #CHRF: at baseline of 3L/min O2 24/7 #Weakness and Deconditioning: PT/OT eval Objective: Vital Signs Temp Pulse Resp BP Pulse Ox 37.3 C 114 H 16 126/91 H 93 05/25/17 11:25 05/25/17 11:25 05/25/17 11:25 05/25/17 11:25 05/25/17 11:25 Laboratory Results 05/25/17 03:43 05/25/17 03:43 05/24/17 05/25/17 05/26/17 06:59 06:59 06:59 Intake Total 1150 Output Total 900 Balance 250 PT 34.0 SEC (12.0-15.0) H 05/25/17 03:43 INR 3.29 (0.83-1.16) H 05/25/17 03:43 ICD10 Worksheet Patient Problems: Problems Problem Status Onset CHF (congestive heart failure) Acute Nausea & vomiting Acute Tachycardia Acute Chronic Disease Mgmt/Transitional Care Acute Elevated troponin Acute Fatigue Acute Hyponatremia Acute Hypoxia Acute Near syncope Acute Pneumonia Acute Pulmonary embolism Acute Right hip pain Acute UTI (urinary tract infection) Acute Urinary tract infection Acute
--- NOTE | 2017-05-25 14:10 | PDDCSUM ---
Discharge Summary Discharge Summary: DISCHARGE DIAGNOSES: -onset atrial flutter with rapid ventricular rate -nausea vomiting abdominal pain of uncertain etiology, resolved -recent history of pulmonary emboli, on ongoing warfarin therapy -stable systolic cardiac dysfunction at 40-45% ejection fraction, no decompensation of heart failure at this time CONSULTANTS: Dr. Cornell Beard of cardiology PROCEDURES: Echocardiogram with ejection fraction unchanged at 45%, mild mitral regurgitation CT scan abdomen with no significant acute abnormalities identified HOSPITAL COURSE SUMMARY: This patient came to the hospital primary complaining of abdominal pain nausea vomiting that had been present for about a week. The etiology of this is uncertain. The CT scan was unremarkable and her examination was benign. She did not have fevers. There was a mild elevation in bilirubin but no definite evidence of a biliary or cholecystic abnormality. She had resolution of the symptoms here in the hospital and is now eating without difficulty and having normal bowel function. We have been giving her proton pump inhibitor therapy with the idea that this may have at least partly been peptic but she did not have endoscopy, and no specific peptic disease was otherwise identified. At this point is still she is stable from discharge [facility] and she will continue on proton pump inhibitor for the moment with the idea that this will be discontinued in the near future if she is doing well. If she is not doing well with the symptoms she may need to have consideration for upper endoscopy or other assessments In addition the patient had rapid atrial flutter when she came here was essentially asymptomatic. She did not have any evidence of congestive heart failure despite her known mild systolic dysfunction. There is no evidence of ischemia. She is already on anticoagulation because of her recent pulmonary emboli and we continued this. She was started on metoprolol for rate control and this was successful. She was also started on amiodarone with that she would convert it to an stay in sinus rhythm but there is consideration for the possibility of cardioversion in the future if she has ongoing problems. Note that as we are starting metoprolol for her we are discontinuing her methyldopa which she had been taking in the past for blood pressure. PENDING TEST RESULTS: None MEDICATION CHANGES: Addition of metoprolol 25 mg twice daily and Protonix 40 mg daily Discontinuation of methyldopa She is to now plan on taking her warfarin indefinitely and so will need ongoing blood test monitoring for that All the above is discussed with patient and her son-in-law at the bedside today FOLLOW-UP PLAN: With Dr. Garrett in 1-2 weeks and at [facility] She is instructed to have an INR blood test 1 week to make sure she stays in range with her Coumadin Greater than 35 minutes bedside and care coordination time today
[2017-05-25] MEDS ORDERED: WARFARIN SODIUM 2 MG TAB PO ONE (16:00)
[2017-05-26] MEDS ORDERED: WARFARIN SODIUM 4 MG TAB PO SCH (16:00)
--- NOTE | 2017-05-26 16:07 | ASDISCHSUM ---
Discharge Information Plan Status:Home with No Needs Medically Cleared to Leave:05/25/2017 Discharge Date:05/25/2017 03:28 PM CM D/C Disposition: ADT D/C Disposition:Home, Routine, Self-Care Projected Discharge Date:05/25/2017 12:00 AM Transportation at D/C: Discharge Delay Reason: Follow-Up Date:05/25/2017 12:00 AM Discharge Slot: Final Diagnosis: Placement Information Patient Contact Information Contact Name:ROBERT Relationship:Daughter Address:[address] City:[place] Alternate Phone: State/Zip Code:[place] [address] Email: Financial Information Financial Class: Primary Plan Desc:MEDICARE INPATIENT Primary Plan Number:[id number] Secondary Plan Desc: Secondary Plan Number: Assessment Information [facility] CM Progress Note CM Note CM Note Notes: 86 year old female admitted for Afib, abdominal pain, tachy, fatigue. Shehas a hx of a recent PE, HTN, CHF, mild dementia, chronic respiratory failure, OP w/compression fx's. Patient lives w/her daughter. OT recommends at this time, HC vs SNF. No PT Notes as yet. CM to follow for discharge needs. Date Signed: 05/24/2017 04:06 PM Electronically Signed By:Hali Yanez LCSW [facility] CM Progress Note CM Note CM Note Notes: Spoke with patient and WILFRED - patient lives with WILFRED and daughter, and home is set up safely for patient. She is not interested in homecare at this time although she thanked me for the information. PT recommended home care, as well (patient declined) and gave patient/family loan closet information for DME. CM available if needs/desires change. Date Signed: 05/25/2017 12:15 PM Electronically Signed By:Merry Sanchez RN Intervention Information
== END 2017-05-25 15:28 | disposition home or self-care (01) | DRG 309 ==
LOC: F2W 05:39 → OBSVTOIN 12:53
PROVIDERS: ADMIT Student in an Organized Health Care Education/Training Program; ATTEND Student in an Organized Health Care Education/Training Program
DX: I48.92 Unspecified atrial flutter (principal); R11.2 Nausea with vomiting, unspecified; R10.9 Unspecified abdominal pain; R53.1 Weakness; I11.0 Hypertensive heart disease with heart failure; I50.40 Unspecified combined systolic (congestive) and diastolic (congestive) heart failure; J96.11 Chronic respiratory failure with hypoxia; F03.90 Unspecified dementia, unspecified severity, without behavioral disturbance, psychotic disturbance, mood disturbance, and anxiety; Z87.19 Personal history of other diseases of the digestive system; Z86.711 Personal history of pulmonary embolism; Z87.440 Personal history of urinary (tract) infections
CPT/HCPCS: 97162-GP; 97166-GO; G8978-GP-CK; G8979-GP-CJ; G8987-GO-CL; G8988-GO-CJ; J1650; J2405; Q9967

== ENCOUNTER 2017-12-18 16:41 | Emergency (ER) | payer OTHER ==
--- NOTE | 2017-12-18 16:43 | EDPHY ---
H & P Time Seen by Provider: 12/18/17 16:43 HPI/ROS: CHIEF COMPLAINT: I just do not feel good HISTORY OF PRESENT ILLNESS: History from the patient as well as her daughter. She says she was feeling her usual self yesterday although she has not been walking at baseline. She felt nausea today was not really able to eat. Not associated with abdominal pain vomiting or diarrhea. Symptoms severe. Daughter says often these are associated with electrolyte abnormalities. REVIEW OF SYSTEMS: Eye: no change in vision ENT: no sore throat Cardiac: no chest pain or syncope Pulmonary: no cough or SOB, no respiratory symptoms. Abdomen: no vomiting, diarrhea, abdominal pain Musculoskeletal: no back pain Skin: no rash Neuro: no headache Constitutional: no fever : no urinary symptoms A comprehensive 10 point review of systems is otherwise negative aside from elements mentioned in the history of present illness. PAST MEDICAL HISTORY: Discharge summary from April 2017 personally reviewed includes pulmonary emboli, atrial flutter, renal insufficiency. Hypertension, appendectomy, cholecystectomy, dementia. Social history: Nonsmoker General Appearance: Alert and conversant, cooperative. Eyes: No scleral icterus. ENT, Mouth: Normal mucous membranes. Respiratory: Normal respiratory effort, breath sounds equal, lungs are clear to auscultation. Cardiovascular: Regular rate and rhythm. Gastrointestinal: Abdomen is soft and non tender. Neurological: Alert, face symmetric, able to move all 4 extremities, generally weak but that is her baseline, speech fluent. Skin: Warm and dry, no rashes. Musculoskeletal: No peripheral edema. Psychiatric: Not agitated. Emergency Department course/MDM: Zofran 4 mg IV and normal saline hydration. EKG and troponin. Electrolytes and urine. 1835: discussed with other daughter, labs reviewed, symptoms from likely UTI. Patient had cefazolin on 10/20/2015 and [facility]. 1 g IV ceftriaxone and oral Keflex. Daughter would like to take the patient home and prefer that she not be hospitalized which I think is reasonable. Admission discussed , but the patient and daughter would prefer to go home. Smoking Status: Never smoked Constitutional: Initial Vital Signs Temperature (C) 37.0 C 12/18/17 16:58 Heart Rate 100 12/18/17 16:58 Respiratory Rate 18 12/18/17 16:58 Blood Pressure 149/102 H 12/18/17 16:58 O2 Sat (%) 91 L 12/18/17 16:58 O2 Delivery Mode Nasal Cannula O2 (L/minute) 2 Allergies/Adverse Reactions: Penicillins Allergy (Intermediate, Verified 12/18/17 16:53) Other-Enter Comments Sulfa (Sulfonamide Antibiotics) Allergy (Intermediate, Verified 12/18/17 16:53) Other-Enter Comments amlodipine Allergy (Verified 12/18/17 16:53) carvedilol Allergy (Verified 12/18/17 16:53) hydralazine Allergy (Verified 12/18/17 16:53) levofloxacin Allergy (Verified 12/18/17 16:53) lisinopril Allergy (Verified 12/18/17 16:53) Home Medications: Medication Instructions Recorded Furosemide [Lasix 40 MG (*)] 40 mg PO DAILY #30 tab 11/02/16 Warfarin Sodium [Coumadin 2MG (*)] 4 mg PO DAILY16 05/24/17 Metoprolol Tartrate [Lopressor 25 25 mg PO BID #60 tab 05/25/17 mg (*)] Pantoprazole Sodium [Protonix 40mg 40 mg PO DAILY #30 tab 05/25/17 (*)] Cephalexin [Keflex] 500 mg PO QID #28 cap 12/18/17 Medical Decision Making - Diagnostics EKG Interpretation: 12-lead EKG interpreted by me; official reading is in trace master. My interpretation is sinus rhythm rate 96 with LVH. Differential Diagnosis: Unlikely to have pyelonephritis, stroke, ACS, low sodium, acute surgical abdominal process. - Data Points Laboratory Results: Laboratory Results 12/18/17 17:10 12/18/17 17:10 12/18/17 12/18/17 12/18/17 17:58 17:10 17:10 WBC 6.79 10^3/uL 10^3/uL (3.80-9.50) RBC 4.65 10^6/uL 10^6/uL (4.18-5.33) Hgb 14.4 g/dL g/dL (12.6-16.3) Hct 43.9 % % (38.0-47.0) MCV 94.4 fL fL (81.5-99.8) MCH 31.0 pg pg (27.9-34.1) MCHC 32.8 g/dL g/dL (32.4-36.7) RDW 14.0 % % (11.5-15.2) Plt Count 312 10^3/uL 10^3/uL (150-400) MPV 9.2 fL fL (8.7-11.7) Neut % (Auto) 60.6 % % (39.3-74.2) Lymph % (Auto) 28.1 % % (15.0-45.0) Scurry % (Auto) 8.7 % % (4.5-13.0) Eos % (Auto) 1.3 % % (0.6-7.6) Baso % (Auto) 1.0 % % (0.3-1.7) Nucleat RBC Rel Count 0.0 % % (0.0-0.2) Absolute Neuts (auto) 4.11 10^3/uL 10^3/uL (1.70-6.50) Absolute Lymphs (auto) 1.91 10^3/uL 10^3/uL (1.00-3.00) Absolute Monos (auto) 0.59 10^3/uL 10^3/uL (0.30-0.80) Absolute Eos (auto) 0.09 10^3/uL 10^3/uL (0.03-0.40) Absolute Basos (auto) 0.07 10^3/uL 10^3/uL (0.02-0.10) Absolute Nucleated RBC 0.00 10^3/uL 10^3/uL (0-0.01) Immature Gran % 0.3 % % (0.0-1.1) Immature Gran # 0.02 10^3/uL 10^3/uL (0.00-0.10) Sodium 137 mEq/L mEq/L (135-145) Potassium 4.2 mEq/L mEq/L (3.3-5.0) Chloride 102 mEq/L mEq/L (97-110) Carbon Dioxide 25 mEq/l mEq/l (22-31) Anion Gap 10 mEq/L mEq/L (8-16) BUN 9 mg/dL mg/dL (7-23) Creatinine 0.4 mg/dL L mg/dL (0.6-1.0) Estimated GFR > 60 Glucose 93 mg/dL mg/dL (70-100) Calcium 8.8 mg/dL mg/dL (8.5-10.4) Troponin I 0.022 ng/mL ng/mL (0.000-0.034) Urine Color YELLOW Urine Appearance HAZY Urine pH 6.0 (5.0-7.5) Ur Specific Boomer 1.015 (1.002-1.030) Urine Protein NEGATIVE (NEGATIVE) Urine Ketones 1+ H (NEGATIVE) Urine Blood NEGATIVE (NEGATIVE) Urine Nitrate POSITIVE H (NEGATIVE) Urine Bilirubin NEGATIVE (NEGATIVE) Urine Urobilinogen 0.2 EU EU (0.2-1.0) Ur Leukocyte Esterase TRACE H (NEGATIVE) Urine RBC NONE SEEN /hpf /hpf (0-3) Urine WBC 15-25 /hpf H /hpf (0-3) Ur Epithelial Cells TRACE /lpf /lpf (NONE-1+) Urine Bacteria 3+ /hpf H /hpf (NONE SEEN) Urine Mucus 2+ /lpf H /lpf (NONE-1+) Urine Glucose NEGATIVE (NEGATIVE) Medications Given: Discontinued Medications Sodium Chloride (Ns) 1,000 mls @ 0 mls/hr IV EDNOW ONE; Wide Open PRN Reason: Protocol Stop: 12/18/17 17:44 Last Admin: 12/18/17 18:14 Dose: 1,000 mls Ceftriaxone Sodium/Dextrose (Rocephin 1 Gm (Premix)) 50 mls @ 100 mls/hr IV EDNOW ONE PRN Reason: Protocol Stop: 12/18/17 19:09 Last Admin: 12/18/17 19:06 Dose: 50 mls Ceftriaxone Sodium/Dextrose (Rocephin 1 Gm (Premix)) 50 mls @ 100 mls/hr IV EDNOW ONE PRN Reason: Protocol Stop: 12/18/17 19:26 Last Admin: 12/18/17 19:54 Dose: Not Given Ondansetron HCl (Zofran) 4 mg IVP EDNOW ONE Stop: 12/18/17 17:44 Last Admin: 12/18/17 19:04 Dose: 4 mg Ondansetron HCl (Zofran Odt 4 Mg Prepack#2) 1 btl TAKEHOME EDNOW ONE Stop: 12/18/17 19:55 Last Admin: 12/18/17 19:59 Dose: 1 btl Departure - Departure Disposition: Home, Routine, Self-Care Clinical Impression: UTI (urinary tract infection) Qualifiers: Urinary tract infection type: acute cystitis Hematuria presence: without hematuria Qualified Code(s): N30.00 - Acute cystitis without hematuria Condition: Good Instructions: Urinary Tract Infection in Women (ED) Additional Instructions: Call for urine culture result [phone] in 48 hr. Referrals: Ayana Garrett MD [Primary Care Provider] - As per Instructions Prescriptions: Cephalexin [Keflex] 500 mg PO QID #28 cap
[2017-12-18 17:14] LABS: PLATELET COUNT 312 10^3/uL (150-400)
--- NOTE | 2017-12-18 17:20 | CPEKG ---
Heart Rate: 96 RR Interval: 625 P-R Interval: 168 QRSD Interval: 88 QT Interval: 364 QTC Interval: 460 P Orrington: -32 QRS Orrington: 33 T Wave Orrington: 73 EKG Severity - ABNORMAL ECG - EKG Impression: SINUS RHYTHM EKG Impression: CONSIDER LEFT VENTRICULAR HYPERTROPHY Electronically Signed By: Lucas Pruett 18-Dec-2017 17:43:02
[2017-12-18] MEDS ORDERED: ONDANSETRON 4 MG/2 ML VIAL IVP ONE (17:43)
[2017-12-18] MEDS ORDERED: NS 1,000 ML IV ONE (17:43)
[2017-12-18] MEDS ORDERED: cefTRIAXone 1 GM VIAL ONE (18:56)
[2017-12-18] MEDS ORDERED: ONDANSETRON 4MG PREPACK#2 BTL TAKEHOME ONE (19:54)
[2017-12-18 23:20] VITALS: BP 146/90
== END 2017-12-18 20:05 | disposition home or self-care (01) ==
LOC: CED 16:41
DX: N30.00 Acute cystitis without hematuria (principal); B96.89 Other specified bacterial agents as the cause of diseases classified elsewhere; E86.9 Volume depletion, unspecified; I10 Essential (primary) hypertension; Z79.01 Long term (current) use of anticoagulants
CPT/HCPCS: 93005; 96361; 96365; 96375; 99284; J0696; J2405; 80048-PO; 81003-PO; 81015-PO; 84484-PO; 85025-PO